=== PATIENT | female | born 1960 | race Caucasian/White ===

== ENCOUNTER 2016-07-16 09:43 | Emergency (ER) ==
[2016-07-16 09:54] VITALS: BP 124/85; TEMP 97.3; BMI 21.1
--- NOTE | 2016-07-16 14:01 | ED.PDOC ---
General ED Provider: Dr. VAHE HUDDLESTON JR Chief Complaint: Fall Stated Complaint: WAS AT WORK. TRIPPED OVER CURB STOP AND FELL ON CAR. LANDED ON RIGHT SIDE. PAIN RIGHT ARM , NECK AND ENTIRE SPINE.[End]2 days 97.3 81 18 95 % 124/85 5/10 injury occured on thursday while at work--states pain is not bad and is able to move all extremities--[ End ] Time Seen by Physician: 14:00 Mode of Arrival: Walk-In Information Source: Patient Exam Limitations: No limitations Nursing and Triage Documentation Reviewed and Agree: No Review of Systems - Review Of Systems Constitutional: Reports: No symptoms Eyes: Reports: No symptoms Ears, Nose, Mouth, Throat: Reports: No symptoms Respiratory: Reports: No symptoms Cardiac: Reports: No symptoms GI: Reports: No symptoms : Reports: No symptoms Musculoskeletal: Reports: Back pain (right), Joint pain (elbow), Muscle pain ( thigh), Neck pain Skin: Reports: No symptoms Neurological: Reports: No symptoms Endocrine: Reports: No symptoms Hematologic/Lymphatic: Reports: No symptoms All Other Systems: Other Past Medical History - Past Medical History Previously Healthy: Yes Endocrine: Reports: None Cardiovascular: Reports: None Respiratory: Reports: None Hematological: Reports: Anemia Gastrointestinal: Reports: None Genitourinary: Reports: None Neuro/Psych: Reports: None Musculoskeletal: Reports: None Cancer: Reports: None Last Menstrual Period: NA - Surgical History General Surgical History: Reports: Hysterectomy - Family History Family History: Reports: Unknown - Social History Smoking Status: Current every day smoker Hx Substance Use: No Alcohol Screening: None - Immunizations Tetanus Shot up to Date: No Physical Exam - Physical Exam Appearance: Ill-appearing Ill-appearing: Mild Pain Distress: Mild Eyes: GET, EOMI, Conjunctiva clear ENT: Ears normal, Nose normal, Oropharynx normal Neck: Supple Respiratory: Airway patent, Breath sounds clear, Breath sounds equal, Respirations nonlabored Cardiovascular: RRR, Pulses normal, No rub, No murmur GI/: Soft, Nontender, No masses, Bowel sounds normal, No Organomegaly Musculoskeletal: Normal strength, ROM intact, No edema, No calf tenderness ( tender Lspine and T spine nonfocal central) Skin: Warm, Dry, Normal color Neurological: Sensation intact, Motor intact, Reflexes intact, Cranial nerves intact, Alert, Oriented Psychiatric: Affect appropriate, Mood appropriate Critical Care Note - Critical Care Note Total Time (mins): 0 Course - Course Orders, Labs, Meds: Lab Review 07/16/16 10:00 Urine Opiates Screen Negative Ur Oxycodone Screen Negative Urine Methadone Screen Negative Ur Propoxyphene Screen Negative Ur Barbiturates Screen Negative U Tricyclic Antidepress Negative Ur Phencyclidine Scrn Negative Ur Amphetamine Screen Negative U Methamphetamines Scrn Negative U Benzodiazepines Scrn Negative Urine Cocaine Screen Negative U Cannabinoids Screen Negative Orders Category Date Time Status DRUG SCREEN, URINE, RAPID Stat LAB 07/16/16 10:00 Completed URINALYSIS C & S IF INDICATED Stat LAB 07/16/16 14:27 Ordered Cyclobenzaprine HCl [Flexeril] MEDS 07/16/16 14:18 Discontinued 10 mg PO ONCE STA LUMBAR SPINE, MIN 4 VIEWS Stat RADS 07/16/16 14:07 Completed THORACIC SPINE, 3 VIEWS Stat RADS 07/16/16 14:07 Completed Medications Discontinued Medications Generic Name Dose Route Start Last Admin Trade Name Freq PRN Reason Stop Dose Admin Cyclobenzaprine HCl 10 mg 07/16/16 14:18 07/16/16 14:55 Flexeril PO 07/16/16 14:19 10 mg ONCE STA Administration Vital Signs: Temp Pulse Resp BP Pulse Ox 07/16/16 09:48 97.3 F L 81 18 124/85 95 Departure - Departure Time of Disposition: 15:28 Disposition: HOME SELF-CARE Discharge Problem: Falls Instructions: Back Pain (ED), Acute Low Back Pain (ED) Condition: Good Pt referred to PMD for follow-up: Yes Additional Instructions: caution with lifting ice 20 minutes three times a day after three to four days may use heat or ice ibuprofen for pain Flexeril for spasms may return to work as soon as improving Allergies/Adverse Reactions: Allergies No Known Allergies Allergy (Unverified 07/16/16 09:47) Home Medications: Ambulatory Orders 1 [No Reported Medications] 07/16/16
[2016-07-16 14:22] LABS: COCAIN SCREEN,URINE NEGATIVE (NEGATIVE)
--- NOTE | 2016-07-16 14:40 | DI ---
EXAM: Thoracic spine three view HISTORY: Fall, back pain, tenderness COMPARISON: None FINDINGS: The vertebral bodies are normal in height. Alignment is normal. Mild chronic discogenic degenerative disease with mild multilevel intervertebral disc space narrowing. No fracture. IMPERSSION: 1. No fracture or subluxation. 2. Mild chronic discogenic degenerative disease.
--- NOTE | 2016-07-16 14:41 | DI ---
EXAM: Lumbar spine five view HISTORY: Fall, back pain COMPARISON: None TECHNIQUE: Five views lumbar spine were performed including oblique views FINDINGS: Sacroiliac joints intact. Sacral arcuate lines intact. Vertebral bodies normal in heigh t. No fracture. No subluxation. Small marginal osteophyte formation. Mild intervertebral disc sp mamie narrowing at L2-L3 and L3-L4. Facet joints grossly unremarkable. There are surgical clips in th e pelvis. IMPRESSION: 1. No fracture or subluxation. 2. Mild chronic discogenic degenerative disease.
[2016-07-16] MEDS: FLEXERIL PO STA (14:55)
[2016-07-16 15:20] LABS: BILIRUBIN,URINE Negative (NEGATIVE); KETONES,URINE Negative (NEGATIVE); LEUKOCYTE ESTERASE ,URINE Negative (NEGATIVE); NITRITE,URINE Negative (NEGATIVE); PH,URINE 6.5 (5-9); PROTEIN,URINE Negative (NEGATIVE); URINE, BLOOD Trace-lysed (NEGATIVE)
[2016-07-16 15:25] LABS: ADD URINE MICROSCOPIC YES
== END 2016-07-16 15:49 | disposition home or self-care (01) ==
LOC: ED 09:43
DX: M54.5 Low back pain (principal); M54.6 Pain in thoracic spine; M54.2 Cervicalgia; M79.601 Pain in right arm; W01.0XXA Fall on same level from slipping, tripping and stumbling without subsequent striking against object, initial encounter; Y99.0 Civilian activity done for income or pay; M51.36 Other intervertebral disc degeneration, lumbar region; M51.34 Other intervertebral disc degeneration, thoracic region; F17.210 Nicotine dependence, cigarettes, uncomplicated
CPT/HCPCS: 80306; 81001; 99283

== ENCOUNTER 2018-12-23 16:05 | Outpatient (CLI) | END 2018-12-23 16:06 | disposition home or self-care (01) | LOC: RHC-LAB 16:05 | PROVIDERS: ATTEND Nurse Practitioner Family | DX: R53.83 Other fatigue (principal); Z76.89 Persons encountering health services in other specified circumstances | CPT/HCPCS: 36415; 80053; 80061; 82607; 84443; 85025 ==

== ENCOUNTER 2022-09-22 17:19 | Observation (INO) ==
[2022-09-22 17:34] VITALS: BMI 22.1
--- NOTE | 2022-09-22 18:10 | ED.PDOC ---
General ED Provider: Dr. JAKE CANTU MD Chief Complaint: Respiratory Complaint Stated Complaint: shortness of breath Time Seen by Provider: 09/22/22 17:45 Information Source: Patient Nursing and Triage Documentation Reviewed and Agree: Yes Does patient meet sepsis criteria?: No System Inflammatory Response Syndrome: Not Applicable Sepsis Protocol: For patient's 13 years and over: Temp is 96.8 and below OR 101 and greater Pulse >90 BPM Resp >20/minute Acutely Altered Mental Status Are patient's symptoms suggestive of a new infection, such as: -Pneumonia -Skin, Soft Tissue -Endocarditis -UTI -Bone, Joint Infection -Implantable Device -Acute Abdominal Infection -Wound Infection -Meningitis -Blood Stream Catheter Infection -Unknown Respiratory Complaint Exam Shortness of Air Complaint/Exam Onset/Duration: ~4 days Symptoms Are: Still present Timing: Constant Initial Severity: Mild Current Severity: Moderate Character: Reports Dyspnea at rest Aggravating: Reports None Alleviating: Reports None Associated Signs and Symptoms: Reports Cough, Fever, Chills, Diaphoresis, Dizziness and Rapid breathing Related History: Denies Similar episode History of Healthcare-Acquired Pneumonia: No Pulmonary Embolism Risk Factors: Reports None Cardiac Risk Factors: Reports None Pseudomonas Risk Factors: Reports None Tuberculosis Risk Factors: Reports None Home Oxygen Use: No Stridor Present: No Tracheal Deviation: No Subcutaneous Emphysema: No Accessory Muscle Use: No Retractions: Not Present Diminished Breath Sounds: Yes Prolonged Expiratory Phase: Yes Unable to Speak Full Sentences: No Fatigue: No Differential Diagnoses: CHF, Pulmonary Edema, COPD Exacerbation, Pneumonia, Pneumothorax, SARS, Bronchitis, Bronchiolitis, Bronchospasm, Mycoplasma and URI Review of Systems Review Of Systems Constitutional: Reports Chills, Fever, Malaise, Weakness and Sweats Respiratory: Reports Cough, Short of air and Wheezing All Other Systems: Reviewed and Negative [facility] Medical History (Updated 09/22/22 @ 22:01 by RAYMOND MELO RN) Allergies T78.40XA - Allergy, unspecified, initial encounter (ICD-10) Arthritis M19.90 - Unspecified osteoarthritis, unspecified site (ICD-10) COPD (chronic obstructive pulmonary disease) J44.9 - Chronic obstructive pulmonary disease, unspecified (ICD-10) Gastroesophageal reflux disease K21.9 - Gastro-esophageal reflux disease without esophagitis (ICD-10) Family History Mother Schizophrenic disorder Brain tumor FATHER Alcoholic Social History (Updated 09/22/22 @ 22:01 by RAYMOND MELO RN) Smoking and tobacco status: Current every day smoker Tobacco type: cigarettes Smoking packs per day: 1.5 Tobacco: How many years used: 12 Quit status: has quit before Alcohol intake: former Substance use type: does not use Brooke/congregation: [employer] Special brooke needs: No Agree to transfusion: Yes Adopted: No Caregiver/support person: No Household members: none Housing: other Marital status: S SINGLE Lives independently: Yes Number of children: 1 Number of grandchildren: 2 Highest education level completed: high school graduate Financial difficulty paying for basics: not very hard service: No Current occupational status: employed 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) Pets and animals: Yes (3 cats) Leisure activites: reading and other History of recent travel: No Sexually active: No Do you think of yourself as: straight/heterosexual Current gender identity: female Seatbelt use: always Drives intoxicated or rides with intoxicated class a regional drivers: No Water heater temperature set < 120 degrees: Yes Working smoke detector in home: Yes Fire extinguisher in home: No Carbon monoxide detector in home: No Firearms in home: No Surgical History Status post hysterectomy Z90.710 - Acquired absence of both cervix and uterus (ICD-10) Female Reproductive History Menstrual Hx Hysterectomy: Yes Hx Tubal Ligation: No Physical Exam Physical Exam Appearance: Reports Ill-appearing and Well-nourished Ill-appearing: Moderate Pain Distress: None Eyes: Reports GET, EOMI and Conjunctiva clear ENT: Reports Ears normal and Nose normal Neck: Nonsupple (normal age-appropriate external appearance) Respiratory: Reports Airway patent, Breath sounds equal, Breath sounds diminished and Rhonchi Cardiovascular: Reports RRR GI/: Reports Soft and Nontender Musculoskeletal: Reports Normal strength and ROM intact Skin: Reports Warm and Dry Neurological: Reports Sensation intact, Motor intact, Cranial nerves intact, Alert and Oriented Psychiatric: Reports Affect appropriate and Mood appropriate Interpretation EKG Interpretation Time of EKG #1: 18:43 Rate: Normal (100) Rhythm: Sinus Ectopy: None Barclay: NL ST Segment: Normal Interpretation: normal ECG EKG Interpretation By: ED Physician Critical Care Note Critical Care Note Total Critical Care Time (mins): 0 Course Course 09/23/22 04:37 09/23/22 04:37 Orders, Labs, Meds: Lab Review 09/22/22 09/22/22 17:52 18:24 WBC 24.03 H RBC 4.62 Hgb 13.7 Hct 40.2 MCV 87.0 MCH 29.7 MCHC 34.1 RDW Coeff of Xavier 13.6 Plt Count 337 Immature Gran % (Auto) 1.0 Neut % (Auto) 80.1 H Lymph % (Auto) 11.4 [place] % (Auto) 6.9 Eos % (Auto) 0.3 Baso % (Auto) 0.3 Neut # (Auto) 19.2 H Lymph # (Auto) 2.8 [place] # (Auto) 1.7 Eos # (Auto) 0.1 Baso # (Auto) 0.1 Immature Gran # (Auto) 0.2 Sodium 134.1 L Potassium 3.51 Chloride 98.2 Carbon Dioxide 31.1 H Anion Gap 8.31 BUN 8.6 Creatinine 0.56 L Estimated GFR (MDRD) 110.00 BUN/Creatinine Ratio 15.35 Glucose 128.4 H Calcium 8.94 Magnesium 2.18 Total Bilirubin 0.30 AST 27.6 ALT 19.9 Alkaline Phosphatase 116.4 Troponin I < 0.012 NT-Pro-B Natriuret Pep 81 Total Protein 7.53 Albumin 3.91 Globulin 3.62 Albumin/Globulin Ratio 1.08 Influ A Molecular Assay Negative by naat Influ B Molecular Assay Negative by naat SARS CoV-2 RNA Rapid WARNER Negative Orders Category Date Time Status ADMIT OBSERVATION [PLACE PATIENT OBSERVATION] .TO ADMISSION 09/22/22 20:53 Active MEDSURG (MONITORED BED) EKG-(ED ONLY) Stat CARDIO 09/22/22 18:10 Completed NEBULIZER TREATMENT Routine CARDIO 09/22/22 20:49 Active OXYGEN Routine CARDIO 09/22/22 20:44 Active REMINDER:Notify Provider Pulse<60 or>130 PRN CARE 09/22/22 20:44 Active REMINDER:Notify if BP<90/60 or >170/110 PRN CARE 09/22/22 20:44 Active TELEMETRY MONITORING TELE CARE 09/22/22 20:53 Active VITAL SIGNS Q8HR CARE 09/22/22 20:44 Completed REGULAR DIET DIETARY 09/23/22 Breakfast Ordered BLOOD CULTURE Stat LAB 09/22/22 21:25 Received CBC W/ AUTO DIFF DAILY@0600 LAB 09/23/22 04:37 Completed CBC W/ AUTO DIFF Stat LAB 09/22/22 18:24 Completed CMP [COMPREHENSIVE METABOLIC PANEL] Stat LAB 09/22/22 18:24 Completed COMPREHENSIVE METABOLIC PANEL DAILY@0600 LAB 09/23/22 04:37 Completed COVID [SARS COV-2 RNA RAPID WARNER] Stat LAB 09/22/22 17:52 Completed FLU A & B MOLECULAR [FLU A/B MOLECULAR] Stat LAB 09/22/22 17:52 Completed MAGNESIUM DAILY@0600 LAB 09/23/22 04:37 Completed MAGNESIUM Stat LAB 09/22/22 18:24 Completed NT-PROBNP(ED) Stat LAB 09/22/22 18:24 Completed RAPID STREP SCREEN [MOLECULAR GROUP A STREP] Stat LAB 09/22/22 17:52 Completed SPUTUM CULTURE Routine LAB 09/22/22 21:00 Uncollected TROPONIN I Stat LAB 09/22/22 18:24 Completed Acetaminophen [Tylenol] Meds 09/22/22 20:50 Active 650 mg PO Q4-6H PRN Albuterol Sulfate 0.083% Neb [Albuterol 0.083% Neb] Meds 09/22/22 20:44 Discontinued 2.5 mg NEB RTQ6H PRN Ipratropium/Albuterol Neb [Duoneb] Meds 09/22/22 18:31 Discontinued 3 ml NEB ONCE ONE Levofloxacin/D5w [Levaquin 750 mg/150 ml D5w] Meds 09/23/22 21:00 Active 750 mg in 150 ml IV DAILY Levofloxacin/D5w [Levaquin 750 mg/150 ml D5w] Meds 09/22/22 20:48 Discontinued 750 mg in 150 ml IV ONCE Mag Hydrox/Al Hydrox/Simeth [Mylanta Susp] Meds 09/22/22 20:54 Active 30 ml PO BID PRN Methylprednisolone Sod Succ/Pf [Solu-Medrol 40 mg] Meds 09/22/22 21:00 Active 40 mg IVP Q8H Ondansetron HCl/Pf [Zofran 4 mg/2 ml] Meds 09/22/22 20:54 Active 4 mg IVP Q8H PRN Sodium Chloride 0.9% [Sodium Chloride] 500 ml Meds 09/22/22 20:58 Discontinued IV 125 mls/hr CHEST, 2 VIEWS PA & LAT Stat RADS 09/22/22 18:10 Completed Medications Generic Name Dose Route Start Last Admin Trade Name Alva PRN Reason Stop Dose Admin Acetaminophen 650 mg 09/22/22 20:50 09/22/22 22:24 Acetaminophen 325 Mg Tablet PO 650 mg Q4-6H PRN Administration Mild/Moderate Pain Al Hydroxide/Mg Hydroxide 30 ml 09/22/22 20:54 Mag Hydrox/Al Hydrox/Simeth 30 Ml Cup PO BID PRN Heartburn Albuterol/Ipratropium 3 ml 09/23/22 00:00 09/23/22 04:55 Ipratropium/Albuterol Vial.Neb NEB 3 ml RTQ6H GRACIELA Administration Levofloxacin/Dextrose 750 mg in 150 mls @ 100 mls/hr 09/23/22 21:00 Levaquin 750 Mg/150 Ml D5w IV 09/26/22 20:59 DAILY GRACIELA Methylprednisolone Sodium Succinate 40 mg 09/22/22 21:00 09/23/22 05:42 Methylprednisolone Sod Succ/Pf 40 Mg/Ml Vial IVP 40 mg Q8H GRACIELA Administration Ondansetron HCl 4 mg 09/22/22 20:54 Ondansetron Hcl/Pf 4 Mg/2 Ml Sdv IVP Q8H PRN Nausea / Vomiting Sodium Chloride 1 syr 09/23/22 13:00 0.9% Sodium Chloride 10 Ml Disp.Syrin IVF Q8HR GRACIELA Discontinued Medications Generic Name Dose Route Start Last Admin Trade Name Alva PRN Reason Stop Dose Admin Albuterol Sulfate 2.5 mg 09/22/22 20:44 Albuterol Sulfate 0.083% Vial.Neb NEB RTQ6H PRN Shortness of Breath Albuterol/Ipratropium 3 ml 09/22/22 18:31 09/22/22 18:38 Ipratropium/Albuterol Vial.Neb NEB 09/22/22 18:32 3 ml ONCE ONE Administration Levofloxacin/Dextrose 750 mg in 150 mls @ 100 mls/hr 09/22/22 20:48 09/22/22 20:57 Levaquin 750 Mg/150 Ml D5w IV 09/22/22 22:17 100 mls/hr ONCE ONE Administration Sodium Chloride 500 mls @ 125 mls/hr 09/22/22 20:58 09/22/22 22:43 Sodium Chloride IV 09/23/22 00:57 125 mls/hr .Q4H STA Administration Vital Signs: Temp Pulse Resp BP Pulse Ox 09/22/22 17:28 97.8 F 113 H 20 99/66 87 L Patient presents with shortness of breath and low Oxygen saturation. She was swabbed on arrival, when posted all (Strep/Flu/CoVid) were negative. She was given a DuoNeb which improved her clinical condition. ECG on arrival, non- acute. Labs posted, clinically significant only for severe leukocytosis (24.03) with a left shift (Segs 80.1%, absolute 19.2). CXR reported Right upper lobe pneumonia. Bilateral apical scarring or pleural thickening. Otherwise normal chest radiographs. She was given IV antibiotics and admitted. She was in stable condition when transported from the ED to the medical floor. I spoke with Jose, the Hospitalist HISTORY TUTOR, who accepted the patient. Discharge Plan Discharge Patient Disposition: ADMITTED INPATIENT Discharge Problem: Pneumonia Qualifiers: Pneumonia type: due to unspecified organism Laterality: right Lung location: upper lobe of lung Qualified Code(s): J18.9 - Pneumonia, unspecified organism Did you review [place] for ALL controlled substances?: Not Applicable ED Provider: JAKE CANTU Condition: Stable Physician Progress Note: []
[2022-09-22 18:20] LABS: MOLECULAR FLU A NEGATIVE BY NAAT (NEGATIVE); MOLECULAR FLU B NEGATIVE BY NAAT (NEGATIVE)
[2022-09-22] MEDS ORDERED: DUONEB NEB ONE (18:31)
[2022-09-22 18:33] LABS: BASOPHILS # (AUTO) 0.1 K/uL (0-0.2); BASOPHILS % (AUTO) 0.3 % (0.0-3.0); EOSINOPHILS # (AUTO) 0.1 K/ul (0.0-0.7); EOSINOPHILS % (AUTO) 0.3 % (0.0-7.0); HEMATOCRIT 40.2 % (37.0-47.0); HEMOGLOBIN 13.7 g/dl (12.0-16.0); IMMATURE GRANULOCYTE # (AUTO) 0.2 (0.0-1.0); LYMPHOCYTES # (AUTO) 2.8 K/uL (0.60-3.4); LYMPHOCYTES % (AUTO) 11.4 (10.0-50.0); MEAN CORPUSCULAR HEMOGLOBIN 29.7 pg (27.0-31.0); MEAN CORPUSCULAR HGB CONC 34.1 (31.8-35.4); MONOCYTES # (AUTO) 1.7 K/uL (0.4-2.0); MONOCYTES % (AUTO) 6.9 (0-10); NEUTROPHILS # (AUTO) 19.2 K/ul (2.0-6.9); NEUTROPHILS % (AUTO) 80.1 % (42.2-75.2); PLATELET COUNT 337 10^3/uL (140-440); RDW COEFFICIENT OF VARIATION 13.6 % (11.6-14.8); RED BLOOD COUNT 4.62 10^6/ul (4.20-5.40)
[2022-09-22 18:34] LABS: WHITE BLOOD COUNT 24.03 K/ul (4.6-10.2)
--- NOTE | 2022-09-22 18:36 | DI ---
EXAM: CHEST RADIOGRAPH TECHNIQUE: Two views. Frontal and lateral. HISTORY: Cough. Shortness of breath. COMPARISON: None. FINDINGS: Consolidation in the right upper lobe inferiorly consistent with pneumonia. Bilateral apical scarrin g or pleural thickening. Otherwise clear lungs. The heart size is normal. There is no pleural effusion. There is no pneumothorax. IMPRESSION: 1. Right upper lobe pneumonia. 2. Bilateral apical scarring or pleural thickening. 3. Otherwise normal chest radiographs.
[2022-09-22 18:41] LABS: ALANINE AMINOTRANSFERASE 19.9 U/L (0-35); ALBUMIN 3.91 g/dL (3.5-5.0); ALKALINE PHOSPHATASE 116.4 U/L (53-141); ASPARTATE AMINO TRANSFERASE 27.6 U/L (14-36); BLOOD UREA NITROGEN 8.6 mg/dL (7-17); CALCIUM 8.94 mg/dL (8.4-10.2); CARBON DIOXIDE 31.1 mmol/L (22-30.0); CHLORIDE 98.2 mmol/L (98-107); CREATININE 0.56 mg/dL (0.60-1.30); GLUCOSE 128.4 mg/dL (74-106); MAGNESIUM 2.18 mg/dL (1.6-2.3); POTASSIUM 3.51 mmol/L (3.5-5.1); SODIUM 134.1 mmol/L (134.5-145); TOTAL PROTEIN 7.53 g/dL (6.3-8.2)
[2022-09-22 18:52] LABS: TROPONIN I < 0.012 ng/ml (0.0000-0.120)
[2022-09-22 18:54] LABS: SARS COV-2 RNA RAPID NAAT NEGATIVE (NEGATIVE)
[2022-09-22] MEDS ORDERED: ALBUTEROL 0.083% NEB NEB PRN (20:44)
[2022-09-22] MEDS ORDERED: LEVAQUIN 750 MG/150 ML D5W 750 MG/150 ML BAG IV ONE (20:48)
[2022-09-22] MEDS ORDERED: TYLENOL PO PRN (20:50)
[2022-09-22] MEDS ORDERED: ZOFRAN 4 MG/2 ML IVP PRN (20:54)
[2022-09-22] MEDS ORDERED: MYLANTA SUSP PO PRN (20:54)
[2022-09-22] MEDS ORDERED: SODIUM CHLORIDE 500 ML IV STA (20:58)
[2022-09-22] MEDS: SOLU-MEDROL 40 MG IVP SCH (22:44)
[2022-09-22] MEDS: DUONEB NEB SCH (23:40)
[2022-09-23] MEDS ORDERED: ATROVENT 0.02% NEB NEB SCH
[2022-09-23 04:41] LABS: BASOPHILS % (AUTO) 0.2 % (0.0-3.0); EOSINOPHILS % (AUTO) 0.2 % (0.0-7.0); HEMATOCRIT 37.6 % (37.0-47.0); HEMOGLOBIN 12.8 g/dl (12.0-16.0); IMMATURE GRANULOCYTE # (AUTO) 0.2 (0.0-1.0); LYMPHOCYTES # (AUTO) 1.1 K/uL (0.60-3.4); MEAN CORPUSCULAR HEMOGLOBIN 29.8 pg (27.0-31.0); MEAN CORPUSCULAR VOLUME 87.4 fl (81.0-99.0); MONOCYTES # (AUTO) 0.4 K/uL (0.4-2.0); MONOCYTES % (AUTO) 1.8 (0-10); NEUTROPHILS # (AUTO) 19.2 K/ul (2.0-6.9); NEUTROPHILS % (AUTO) 91.8 % (42.2-75.2); PLATELET COUNT 318 10^3/uL (140-440); RDW COEFFICIENT OF VARIATION 13.9 % (11.6-14.8); WHITE BLOOD COUNT 20.93 K/ul (4.6-10.2)
[2022-09-23] MEDS: DUONEB NEB SCH ×4 (04:55→23:13)
[2022-09-23 05:05] LABS: ALANINE AMINOTRANSFERASE 20.2 U/L (0-35); ALBUMIN 3.46 g/dL (3.5-5.0); ALKALINE PHOSPHATASE 100.3 U/L (53-141); ASPARTATE AMINO TRANSFERASE 28.8 U/L (14-36); BILIRUBIN,TOTAL 0.28 mg/dL (0.2-1.3); BLOOD UREA NITROGEN 8.6 mg/dL (7-17); CALCIUM 8.55 mg/dL (8.4-10.2); CARBON DIOXIDE 28.7 mmol/L (22-30.0); CHLORIDE 103.3 mmol/L (98-107); CREATININE 0.47 mg/dL (0.60-1.30); MAGNESIUM 2.26 mg/dL (1.6-2.3); POTASSIUM 3.87 mmol/L (3.5-5.1); SODIUM 135.1 mmol/L (134.5-145); TOTAL PROTEIN 6.79 g/dL (6.3-8.2)
[2022-09-23] MEDS: SOLU-MEDROL 40 MG IVP SCH ×3 (05:42→21:37)
--- NOTE | 2022-09-23 08:55 | PCM ---
Date of Service Date Seen by Provider: 09/23/22 Time Seen by Provider: 08:20 Admit Day/Time Admission Date: 09/22/22 Admission Time: 21:00 Reason for Admission Chief Complaint: RUL PNA Hospital Provider Hospital Provider[facility] SILVESTRE DOZ[facility] History of Present Illness History of Present Illness: 62 yo female presented to the ER last night for complaints of shortness of breath and fatigue. Patient states that she has not been feeling well for at least a week with symptoms of fatigue, cough, chills, congestion, and shortness of breath. The shortness of breath started over the last 2 days. Also reported an episode of diarrhea. Denies any fever, chest or back pain, N/V. She is a heavy smoker of 2 ppd. Case Discussed With Case Discussed With: Patient's case was discussed with the ER Physicians, Dr. Zaman. [facility] Medical History (Updated 09/23/22 @ 08:55 by SILVESTRE DOZIER) Allergies T78.40XA - Allergy, unspecified, initial encounter (ICD-10) Arthritis M19.90 - Unspecified osteoarthritis, unspecified site (ICD-10) COPD (chronic obstructive pulmonary disease) J44.9 - Chronic obstructive pulmonary disease, unspecified (ICD-10) Gastroesophageal reflux disease K21.9 - Gastro-esophageal reflux disease without esophagitis (ICD-10) Generalized anxiety disorder F41.1 - Generalized anxiety disorder (ICD-10) Major depressive disorder, single episode, mild F32.0 - Major depressive disorder, single episode, mild (ICD-10) Surgical History Status post hysterectomy Z90.710 - Acquired absence of both cervix and uterus (ICD-10) Family History Mother Schizophrenic disorder Brain tumor FATHER Alcoholic Social History Smoking and tobacco status: Current every day smoker Tobacco type: cigarettes Smoking packs per day: 1.5 Tobacco: How many years used: 12 Quit status: has quit before Alcohol intake: former Substance use type: does not use Brooke/yarsani: ISLAM Special brooke needs: No Agree to transfusion: Yes Adopted: No Caregiver/support person: No Household members: none Housing: other Marital status: S SINGLE Lives independently: Yes Number of children: 1 Number of grandchildren: 2 Highest education level completed: high school graduate Financial difficulty paying for basics: not very hard service: No Current occupational status: employed 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) Pets and animals: Yes (3 cats) Leisure activites: reading and other History of recent travel: No Sexually active: No Do you think of yourself as: straight/heterosexual Current gender identity: female Seatbelt use: always Drives intoxicated or rides with intoxicated flag car driver: No Water heater temperature set < 120 degrees: Yes Working smoke detector in home: Yes Fire extinguisher in home: No Carbon monoxide detector in home: No Firearms in home: No Allergies Allergies Allergy/AdvReac Type Severity Reaction Status Date / Time No Known Allergies Allergy Verified 03/12/21 14:17 Current Medications Home Medications aspirin 81 mg chewable tablet (Aspirin Childrens) 81 mg PO DAILY 09/22/22 [History Confirmed 09/22/22 Last Taken Unknown] fluticasone propionate 50 mcg/actuation nasal spray,suspension (24 Hour Allergy Relief) 2 spray intranasal DAILY PRN allergy symptoms 09/22/22 [History Confirmed 09/22/22 Last Taken 09/22/22] Home Acetaminophen (Acetaminophen 325 Mg Tablet) 650 mg PO Q4-6H PRN PRN Reason: Mild/Moderate Pain Last Admin: 09/22/22 22:24 Dose: 650 mg Al Hydroxide/Mg Hydroxide (Mag Hydrox/Al Hydrox/Simeth 30 Ml Cup) 30 ml PO BID PRN PRN Reason: Heartburn Albuterol/Ipratropium (Ipratropium/Albuterol Vial.Neb) 3 ml NEB RTQ6H GRACIELA Last Admin: 09/23/22 04:55 Dose: 3 ml Levofloxacin/Dextrose (Levaquin 750 Mg/150 Ml D5w) 750 mg in 150 mls @ 100 mls/hr IV BEDTIME GRACIELA Stop: 09/26/22 20:59 Methylprednisolone Sodium Succinate (Methylprednisolone Sod Succ/Pf 40 Mg/Ml Vial) 40 mg IVP Q8H GRACIELA Last Admin: 09/23/22 05:42 Dose: 40 mg Ondansetron HCl (Ondansetron Hcl/Pf 4 Mg/2 Ml Sdv) 4 mg IVP Q8H PRN PRN Reason: Nausea / Vomiting Sodium Chloride (0.9% Sodium Chloride 10 Ml Disp.Syrin) 1 syr IVF Q8HR GRACIELA Valacyclovir HCl (Valacyclovir Hcl 500 Mg Tablet) 1,000 mg PO BID GRACIEAL Stop: 09/29/22 23:59 Last Admin: 09/23/22 09:41 Dose: 1,000 mg Discontinued Medications Albuterol Sulfate (Albuterol Sulfate 0.083% Vial.Neb) 2.5 mg NEB RTQ6H PRN PRN Reason: Shortness of Breath Albuterol/Ipratropium (Ipratropium/Albuterol Vial.Neb) 3 ml NEB ONCE ONE Stop: 09/22/22 18:32 Last Admin: 09/22/22 18:38 Dose: 3 ml Levofloxacin/Dextrose (Levaquin 750 Mg/150 Ml D5w) 750 mg in 150 mls @ 100 mls/hr IV ONCE ONE Stop: 09/22/22 22:17 Last Admin: 09/22/22 20:57 Dose: 100 mls/hr Sodium Chloride (Sodium Chloride) 500 mls @ 125 mls/hr IV .Q4H STA Stop: 09/23/22 00:57 Last Admin: 09/22/22 22:43 Dose: 125 mls/hr Review of Systems Constitutional: Reports Fatigue and Chills Head: Reports Normocephalic and Atraumatic Eyes: Reports No symptoms Ears: Reports No symptoms Nose: Reports Congestion Mouth: Reports Sores (fever blisters 2-3 days) Throat: Reports No symptoms Cardiovascular: Reports No symptoms Respiratory: Reports Cough and Shortness of air Gastrointestinal: Reports Diarrhea Genitourinary: Reports No Symptoms Musculoskeletal: Reports No symptoms Hematology: Reports No symptoms Immunology: Reports No symptoms Neurological: Reports No symptoms Psychiatric: Reports No symptoms Physical examination Most Recent Vital Signs: Most Recent Vital Signs Temperature 97.4 F L 09/23/22 05:47 Temperature Source Oral 09/23/22 05:47 Temperature Source Infrared 09/22/22 17:28 Pulse Rate 72 09/23/22 05:47 Respiratory Rate 18 09/23/22 05:47 Blood Pressure 112/76 09/23/22 05:47 Blood Pressure Mean 88 09/23/22 05:47 Blood Pressure Right Arm 111/77 09/22/22 21:37 Blood Pressure Location Right Arm 09/23/22 05:47 Blood Pressure Position Supine 09/23/22 05:47 O2 Sat by Pulse Oximetry 94 L 09/23/22 05:47 Oxygen Delivery Method Nasal Cannula 09/23/22 05:47 Oxygen Flow Rate 2 09/23/22 05:47 Height 5 ft 2 in 09/22/22 21:37 Weight 121 lb 09/22/22 21:37 Telemetry Type Remote Telemetry 09/23/22 01:00 Telemetry Monitoring Continues 09/23/22 01:00 Telemetry Heart Rate 81 09/23/22 01:00 Telemetry SPO2 97 09/23/22 01:00 EKG MS Interval 0.17 09/23/22 01:00 EKG QRS Interval 0.05 L 09/23/22 01:00 Telemetry Strip Reading SR 09/23/22 01:00 Appearance: Positive No Apparent Distress, Alert and Oriented x3, Ill-Appearing and Thin Skin: Positive [place], Warm, Good Turgor, Good Color and Other (Herpes simplex noted to R upper and lower lips) HEENT: Positive Normocephalic and Atraumatic Neck: Positive Supple and Midline Trachea Chest/Lungs: Positive Symmetrical With Equal Breath Sounds, Clear to Auscultation Bilaterally, Good Air Movement all 4 Lung Hernandez and Other (Diminished breath sounds to R upper lobe) Heart: Positive RRR, Pulses Normal, No S3 Auscultated and No S4 Auscultated GI/: Positive Soft, Nontender, Bowel Sounds Normal, No Distention and No Organomegaly Musculoskeletal: Positive Not Examined Extremities: Positive Intact Peripheral Pulses, Stable Joints Without Laxity and Good ROM in All Joints Neurological: Positive Sensation Intact, Motor intact, Reflexes Intact, Cranial Nerves Intact, Alert, Oriented and Muscle Strength 5/5 in Upper and Lower Extremities Bilaterally Psychiatric: Positive Oriented x4, Appropriate Mood, Appropriate Affect, Intact Memory, Good Short-Term Recall, Good Long-Term Recall, Normal Judgement and Normal Insight Labs This Visit Labs This Visit: Labs This Visit 09/22/22 09/22/22 09/23/22 17:52 18:24 04:37 WBC 24.03 H 20.93 H RBC 4.62 4.30 Hgb 13.7 12.8 Hct 40.2 37.6 MCV 87.0 87.4 MCH 29.7 29.8 MCHC 34.1 34.0 RDW Coeff of Xavier 13.6 13.9 Plt Count 337 318 Immature Gran % (Auto) 1.0 1.0 Neut % (Auto) 80.1 H 91.8 H Lymph % (Auto) 11.4 5.0 L [place] % (Auto) 6.9 1.8 Eos % (Auto) 0.3 0.2 Baso % (Auto) 0.3 0.2 Neut # (Auto) 19.2 H 19.2 H Lymph # (Auto) 2.8 1.1 [place] # (Auto) 1.7 0.4 Eos # (Auto) 0.1 0.0 Baso # (Auto) 0.1 0.0 Immature Gran # (Auto) 0.2 0.2 Sodium 134.1 L 135.1 Potassium 3.51 3.87 Chloride 98.2 103.3 Carbon Dioxide 31.1 H 28.7 Anion Gap 8.31 6.97 BUN 8.6 8.6 Creatinine 0.56 L 0.47 L Estimated GFR (MDRD) 110.00 135.00 BUN/Creatinine Ratio 15.35 18.29 Glucose 128.4 H 148.0 H Calcium 8.94 8.55 Magnesium 2.18 2.26 Total Bilirubin 0.30 0.28 AST 27.6 28.8 ALT 19.9 20.2 Alkaline Phosphatase 116.4 100.3 Troponin I < 0.012 NT-Pro-B Natriuret Pep 81 Total Protein 7.53 6.79 Albumin 3.91 3.46 L Globulin 3.62 3.33 Albumin/Globulin Ratio 1.08 1.03 Influ A Molecular Assay Negative by naat Influ B Molecular Assay Negative by naat SARS CoV-2 RNA Rapid WARNER Negative Microbiology This Visit 09/22/22 17:52 Throat Group A Strep Molecular Assay - Final Imaging Imagining: CHEST, 2 VIEWS PA & LAT IMPRESSION: 1. Right upper lobe pneumonia. 2. Bilateral apical scarring or pleural thickening. 3. Otherwise normal chest radiographs. Review Statement Review Statement: I have independently reviewed and interpreted the labs/EKGs/imaging that were ordered by the ER provider. I have reviewed all outside records that are available currently in our EMR including imaging/notes/labs from previous visits. Plan Plan: 1. Sepsis in the setting of community acquired pneumonia - blood cultures pending, sputum culture pending, started on levaquin in ER - continue Q24H, NS@125mL/hr, solumedrol 40 mg Q8H, nebs, telemetry 2. Acute Hypoxic Respiratory Failure in setting of CAP and COPD - RT following, wean off O2 as tolerated, nebs, solumedrol 40 mg Q8H 3. Community Acquired Pneumonia - R upper lobe, no s/sx of aspiration noted from patient, treating with levaquin 4. COPD - see above plan 5. Herpes simplex, oral - treating with course of valtrex 1G BID x 7 days 6. Tobacco use - nicotine patch if patient desires, discussed smoking cessation 7. Anxiety/Depression - no longer taking medications, no SI/HI or current issues DVT Prophylaxis: Early ambulation for VTE prevention Time Spent: Greater than 80 minutes spent with patient, 50% of the time spent with this patient was devoted to counseling and coordination of care. [facility] minutes spent discussing advance care planning. Smoking Cessation: 8 minutes spent discussing smoking cessation. Disposition: Admit to Med/surg observation Discussed Plan of Care with Dr. Loredo. Medications Medication Orders: Medications Ordered Category Date Time Status 0.9 % Sodium Chloride [Saline Flush] Meds 09/23/22 13:00 Active 1 syr IVF Q8HR Acetaminophen [Tylenol] Meds 09/22/22 20:50 Active 650 mg PO Q4-6H PRN Ipratropium/Albuterol Neb [Duoneb] Meds 09/23/22 00:00 Active 3 ml NEB RTQ6H Levofloxacin/D5w [Levaquin 750 mg/150 ml D5w] Meds 09/23/22 21:00 Active 750 mg in 150 ml IV BEDTIME Mag Hydrox/Al Hydrox/Simeth [Mylanta Susp] Meds 09/22/22 20:54 Active 30 ml PO BID PRN Methylprednisolone Sod Succ/Pf [Solu-Medrol 40 mg] Meds 09/22/22 21:00 Active 40 mg IVP Q8H Ondansetron HCl/Pf [Zofran 4 mg/2 ml] Meds 09/22/22 20:54 Active 4 mg IVP Q8H PRN
[2022-09-23] MEDS ORDERED: VALTREX PO SCH (09:30)
[2022-09-23] MEDS: VALTREX PO SCH ×2 (09:41→20:01)
[2022-09-23] MEDS ORDERED: LEVAQUIN 750 MG/150 ML D5W 750 MG/150 ML BAG IV SCH (21:00)
[2022-09-24] MEDS: DUONEB NEB SCH ×2 (05:10→11:00)
[2022-09-24] MEDS: SOLU-MEDROL 40 MG IVP SCH ×2 (05:54→12:53)
[2022-09-24] MEDS: VALTREX PO SCH (08:43)
[2022-09-24 08:50] LABS: BASOPHILS # (AUTO) 0.1 K/uL (0-0.2); BASOPHILS % (AUTO) 0.2 % (0.0-3.0); HEMATOCRIT 39.3 % (37.0-47.0); HEMOGLOBIN 13.1 g/dl (12.0-16.0); IMMATURE GRANULOCYTE # (AUTO) 1.1 (0.0-1.0); IMMATURE GRANULOCYTE % (AUTO) 3.3 % (0.0-5.0); LYMPHOCYTES # (AUTO) 2.7 K/uL (0.60-3.4); LYMPHOCYTES % (AUTO) 7.8 (10.0-50.0); MEAN CORPUSCULAR HEMOGLOBIN 29.5 pg (27.0-31.0); MEAN CORPUSCULAR HGB CONC 33.3 (31.8-35.4); MEAN CORPUSCULAR VOLUME 88.5 fl (81.0-99.0); MONOCYTES # (AUTO) 1.2 K/uL (0.4-2.0); MONOCYTES % (AUTO) 3.5 (0-10); NEUTROPHILS # (AUTO) 29.6 K/ul (2.0-6.9); NEUTROPHILS % (AUTO) 85.2 % (42.2-75.2); PLATELET COUNT 417 10^3/uL (140-440); RED BLOOD COUNT 4.44 10^6/ul (4.20-5.40)
[2022-09-24 09:03] LABS: ALBUMIN 3.48 g/dL (3.5-5.0); ALKALINE PHOSPHATASE 94.6 U/L (53-141); ASPARTATE AMINO TRANSFERASE 29.3 U/L (14-36); BILIRUBIN,TOTAL 0.18 mg/dL (0.2-1.3); BLOOD UREA NITROGEN 12.5 mg/dL (7-17); CALCIUM 8.98 mg/dL (8.4-10.2); CARBON DIOXIDE 26.7 mmol/L (22-30.0); CREATININE 0.5 mg/dL (0.60-1.30); GLUCOSE 143.3 mg/dL (74-106); POTASSIUM 3.98 mmol/L (3.5-5.1); SODIUM 138.4 mmol/L (134.5-145); TOTAL PROTEIN 6.89 g/dL (6.3-8.2)
[2022-09-24 10:01] VITALS: BP 103/61; RESP 16; TEMP 96.6
--- NOTE | 2022-09-24 11:15 | PCM.PROG ---
Date/Time Seen Date Seen by Provider: 09/24/22 Time Seen by Provider: 08:45 Provider Provider: SILVESTRE DOZIER, [facility] Chief Complaint Chief Complaint: RUL PNA Subjective Subjective: No fever or events overnight. Feeling better today. Still requiring oxygen. Objective Appearance: Positive No Apparent Distress, Alert and Oriented x3 and Thin Chest/Lungs: Positive Symmetrical With Equal Breath Sounds, Clear to Auscultation Bilaterally and Good Air Movement all 4 Lung Hernandez Heart: Positive RRR and Pulses Normal GI/: Positive Soft, Nontender, Bowel Sounds Normal, No Distention and No Organomegaly Musculoskeletal: Positive Not Examined Neurological: Positive Sensation Intact, Motor intact, Reflexes Intact, Alert, Oriented and Muscle Strength 5/5 in Upper and Lower Extremities Bilaterally Vital Signs Vital Signs: Vital Signs: Last 24 Hours 09/23/22 13:00 09/23/22 14:00 09/23/22 14:00 Temperature 96.5 F L Temperature Source Temporal Artery Scan Pulse Rate 79 Respiratory Rate 20 Blood Pressure 111/69 Blood Pressure Mean 83 Blood Pressure Location Right Arm Blood Pressure Position O2 Sat by Pulse Oximetry 88 L Oxygen Delivery Method Nasal Cannula Nasal Cannula Oxygen Flow Rate 2 2 Telemetry Type Remote Telemetry Telemetry Monitoring Continues Telemetry Heart Rate 87 Telemetry SPO2 93 EKG FL Interval 0.13 EKG QRS Interval 0.05 L Telemetry Strip Reading SR 09/23/22 18:00 09/24/22 02:00 09/23/22 19:00 Temperature 96.7 F L 97 F L Temperature Source Temporal Artery Scan Temporal Artery Scan Pulse Rate 86 82 Respiratory Rate 16 18 Blood Pressure 107/74 104/72 Blood Pressure Mean 85 82 Blood Pressure Location Right Arm Right Arm Blood Pressure Position Sitting Supine O2 Sat by Pulse Oximetry 94 L 93 L Oxygen Delivery Method Nasal Cannula Nasal Cannula Oxygen Flow Rate 2 2 Telemetry Type Remote Telemetry Telemetry Monitoring Continues Telemetry Heart Rate 92 Telemetry SPO2 92 L EKG FL Interval 0.14 EKG QRS Interval 0.06 Telemetry Strip Reading NSR 09/23/22 20:50 09/23/22 20:00 09/23/22 20:00 Temperature 96.9 F L Temperature Source Temporal Artery Scan Pulse Rate 70 Respiratory Rate 18 Blood Pressure 106/66 Blood Pressure Mean 79 Blood Pressure Location Right Arm Blood Pressure Position Supine O2 Sat by Pulse Oximetry 95 Oxygen Delivery Method Nasal Cannula Nasal Cannula Nasal Cannula Oxygen Flow Rate 2 2 2 Telemetry Type Telemetry Monitoring Telemetry Heart Rate Telemetry SPO2 EKG FL Interval EKG QRS Interval Telemetry Strip Reading 09/24/22 01:00 09/24/22 05:38 09/24/22 05:58 Temperature 96.9 F L Temperature Source Temporal Artery Scan Pulse Rate 73 Respiratory Rate 20 Blood Pressure 93/56 L Blood Pressure Mean 68 Blood Pressure Location Left Arm Blood Pressure Position Supine O2 Sat by Pulse Oximetry 96 98 Oxygen Delivery Method Nasal Cannula Nasal Cannula Oxygen Flow Rate 2 2 Telemetry Type Remote Telemetry Telemetry Monitoring Continues Telemetry Heart Rate 60 Telemetry SPO2 94 EKG FL Interval 0.14 EKG QRS Interval 0.06 Telemetry Strip Reading NSR 09/24/22 10:00 09/24/22 08:00 09/24/22 07:00 Temperature 96.6 F L Temperature Source Temporal Artery Scan Pulse Rate 87 Respiratory Rate 16 Blood Pressure 103/61 Blood Pressure Mean 75 Blood Pressure Location Right Arm Blood Pressure Position Sitting O2 Sat by Pulse Oximetry 91 L Oxygen Delivery Method Room Air Nasal Cannula Oxygen Flow Rate 1 Telemetry Type Remote Telemetry Telemetry Monitoring Continues Telemetry Heart Rate 68 Telemetry SPO2 EKG FL Interval 0.14 EKG QRS Interval 0.06 Telemetry Strip Reading sr Lab Results Lab Results: Lab Results: Last 24 Hours 09/24/22 08:46 WBC 34.70 H D RBC 4.44 Hgb 13.1 Hct 39.3 MCV 88.5 MCH 29.5 MCHC 33.3 RDW Coeff of Xavier 14.0 Plt Count 417 D Immature Gran % (Auto) 3.3 Neut % (Auto) 85.2 H Lymph % (Auto) 7.8 L [place] % (Auto) 3.5 Eos % (Auto) 0.0 Baso % (Auto) 0.2 Neut # (Auto) 29.6 H Lymph # (Auto) 2.7 [place] # (Auto) 1.2 Eos # (Auto) 0.0 Baso # (Auto) 0.1 Immature Gran # (Auto) 1.1 H Sodium 138.4 Potassium 3.98 Chloride 105.0 Carbon Dioxide 26.7 Anion Gap 10.68 BUN 12.5 Creatinine 0.50 L Estimated GFR (MDRD) 126.00 BUN/Creatinine Ratio 25.00 Glucose 143.3 H Calcium 8.98 Total Bilirubin 0.18 L AST 29.3 ALT 29.0 Alkaline Phosphatase 94.6 Total Protein 6.89 Albumin 3.48 L Globulin 3.41 Albumin/Globulin Ratio 1.02 Additional Comments Additional Comments: I have independently reviewed and interpreted the labs/EKGs/imaging ordered during this hospital stay. I have reviewed outside records that are available in our EMR that pertain to medical stay including imaging/notes/labs from previous visits. Active Medications Active Medications: Medications Generic Name Dose Route Start Last Admin Trade Name Freq PRN Reason Stop Dose Admin Acetaminophen 650 mg 09/22/22 20:50 09/22/22 22:24 Acetaminophen 325 Mg Tablet PO 650 mg Q4-6H PRN Administration Mild/Moderate Pain Al Hydroxide/Mg Hydroxide 30 ml 09/22/22 20:54 Mag Hydrox/Al Hydrox/Simeth 30 Ml Cup PO BID PRN Heartburn Albuterol/Ipratropium 3 ml 09/23/22 00:00 09/24/22 05:10 Ipratropium/Albuterol Vial.Neb NEB 3 ml RTQ6H GRACIELA Administration Levofloxacin/Dextrose 750 mg in 150 mls @ 100 mls/hr 09/23/22 21:00 09/23/22 20:00 Levaquin 750 Mg/150 Ml D5w IV 09/26/22 20:59 100 mls/hr BEDTIME GRACIELA Administration Methylprednisolone Sodium Succinate 40 mg 09/22/22 21:00 09/24/22 05:54 Methylprednisolone Sod Succ/Pf 40 Mg/Ml Vial IVP 40 mg Q8H GRACIELA Administration Ondansetron HCl 4 mg 09/22/22 20:54 Ondansetron Hcl/Pf 4 Mg/2 Ml Sdv IVP Q8H PRN Nausea / Vomiting Sodium Chloride 1 syr 09/23/22 13:00 09/24/22 05:55 0.9% Sodium Chloride 10 Ml Disp.Syrin IVF 1 syr Q8HR GRACIELA Administration Valacyclovir HCl 1,000 mg 09/23/22 10:00 09/24/22 08:43 Valacyclovir Hcl 500 Mg Tablet PO 09/29/22 23:59 1,000 mg BID GRACIELA Administration Plan Plan: 1. Sepsis in the setting of community acquired pneumonia - blood cultures preliminary negative after 24 hours, sputum culture pending, continue levaquin, NS@125mL/hr, solumedrol 40 mg Q8H, nebs, telemetry 2. Acute Hypoxic Respiratory Failure in setting of CAP and COPD - RT following, wean off O2 as tolerated, nebs, solumedrol 40 mg Q8H, failed 3-step O2 test 3. Community Acquired Pneumonia - R upper lobe, no s/sx of aspiration noted from patient, treating with lobo 4. COPD - see above plan 5. Herpes simplex, oral - treating with course of valtrex 1G BID x 7 days 6. Tobacco use - nicotine patch if patient desires, discussed smoking cessation 7. Anxiety/Depression - no longer taking medications, no SI/HI or current issues Patient does not have insurance and is unable to afford home oxygen out of pocket. Plan to keep in hospital until patient able to go home safely without oxygen - continue to wean as patient is able to tolerate. Review Statement Review Statement: I have personally discussed and reviewed the patient's visit/currently labs/imaging/decision making with Dr. Loredo, my supervising attending. Greater that 50 minutes spent with patient, 50% of the time spent with this patient was devoted to counseling and coordination of care.
--- NOTE | 2022-09-24 12:25 | CT ---
EXAM: CTA CHEST FOR PE HISTORY: Shortness of breath COMPARISON: Chest radiograph from 09/22/2022 TECHNIQUE: CTA of the chest was performed from the lung apices to the upper abdomen after Omnipaqu e IV contrast was administered using PE protocol. 3-D imaging was also provided. FINDINGS: No PE. No CT findings of acute right ventricular strain or pulmonary infarct. There are scattered areas of consolidation and ground-glass densities in both lungs most notably in t he mid lungs anteriorly in the right lower lobe. No pleural effusion. Mediastinal and hilar lymphadenopathy including an index 0.2 cm precarinal lymph node. IMPRESSION: No PE. Scattered areas of consolidation and ground-glass densities, peribronchial wall thickening and mucus plugging, concerning for multifocal pneumonia. Mediastinal and hilar lymphadenopathy, possibly reactive. Clinical imaging follow-up to ensure resolution and exclude other etiologies. All CT scans are performed using dose optimization techniques as appropriate to the performed exam an d include at least one of the following: Automated exposure control, adjustment of the mA and/or kV according t o size, and the use of iterative reconstruction technique.
--- NOTE | 2022-09-24 13:43 | DCSUM ---
Admission Date Admission Date: 09/22/22 Discharge Date Discharge Date: 09/24/22 Admission Diagnosis Admission Diagnosis: Sepsis, Community Acquired Pneumonia, COPD exacerbation Discharge Diagnosis Discharge Diagnosis: Community Acquired Pneumonia, COPD Exacerbation Hospital Provider Hospital Provider: SILVESTRE DOZIER, [facility] Summary of History and Physical Summary of History and Physical: 62 yo female presented to the ER last night for complaints of shortness of breath and fatigue. Patient states that she has not been feeling well for at least a week with symptoms of fatigue, cough, chills, congestion, and shortness of breath. The shortness of breath started over the last 2 days. Also reported an episode of diarrhea. Denies any fever, chest or back pain, N/V. She is a heavy smoker of 2 ppd. Hospital Course Subjective: Course of treatment: 1. Sepsis in the setting of community acquired pneumonia - blood cultures prelimary 24 hours negative, continue levaquin, NS@125mL/hr, solumedrol 40 mg Q8H, nebs, telemetry 2. Acute Hypoxic Respiratory Failure in setting of CAP and COPD - RT following, wean off O2 as tolerated, nebs, solumedrol 40 mg Q8H, failed 3-step O2 test 3. Community Acquired Pneumonia - R upper lobe, no s/sx of aspiration noted from patient, treating with levaquin 4. COPD - see above plan 5. Herpes simplex, oral - treating with course of valtrex 1G BID x 7 days 6. Tobacco use - nicotine patch if patient desires, discussed smoking cessation 7. Anxiety/Depression - no longer taking medications, no SI/HI or current issues No events overnight. No fever. CTA completed to r/o PE which was negative. Showed multifocal pneumonia. Patient failed 3 step O2 trial today, qualifying for home O2. Patient does not have insurance and is unable to afford further hospital stay. clothing worker was able to setup home O2 for patient. Appearance: Pleasant, No Apparent Distress and Alert HEENT: MMM, Supple and No JVD CVS: No Murmur, No Rubs, No Gallop and No JVD Abdomen: Soft, Non-Tender and No Distention Respiratory: Other (no dyspnea, accessory muscle use, wheezing or crackles) Extremities: No Edema Vital Signs: Most Recent Vital Signs Temperature 96.6 F L 09/24/22 10:00 Temperature Source Temporal Artery Scan 09/24/22 10:00 Temperature Source Infrared 09/22/22 17:28 Pulse Rate 87 09/24/22 10:00 Respiratory Rate 16 09/24/22 10:00 Blood Pressure 103/61 09/24/22 10:00 Blood Pressure Mean 75 09/24/22 10:00 Blood Pressure Right Arm 111/77 09/22/22 21:37 Blood Pressure Location Right Arm 09/24/22 10:00 Blood Pressure Position Sitting 09/24/22 10:00 O2 Sat by Pulse Oximetry 96 09/24/22 10:00 Oxygen Delivery Method Nasal Cannula 09/24/22 10:00 Oxygen Flow Rate 2 09/24/22 10:00 Height 5 ft 2 in 09/22/22 21:37 Weight 121 lb 09/22/22 21:37 Telemetry Type Remote Telemetry 09/24/22 07:00 Telemetry Monitoring Continues 09/24/22 07:00 Telemetry Heart Rate 68 09/24/22 07:00 Telemetry SPO2 94 09/24/22 01:00 EKG UT Interval 0.14 09/24/22 07:00 EKG QRS Interval 0.06 09/24/22 07:00 Telemetry Strip Reading sr 09/24/22 07:00 Imaging: EXAM: CTA CHEST FOR PE IMPRESSION: No PE. Scattered areas of consolidation and ground-glass densities, peribronchial wall thickening and mucus plugging, concerning for multifocal pneumonia. Mediastinal and hilar lymphadenopathy, possibly reactive. Clinical imaging follow-up to ensure resolution and exclude other etiologies. Lab Results Last 24 Hours: 09/24/22 08:46 WBC 34.70 H D RBC 4.44 Hgb 13.1 Hct 39.3 MCV 88.5 MCH 29.5 MCHC 33.3 RDW Coeff of Xavier 14.0 Plt Count 417 D Immature Gran % (Auto) 3.3 Neut % (Auto) 85.2 H Lymph % (Auto) 7.8 L [place] % (Auto) 3.5 Eos % (Auto) 0.0 Baso % (Auto) 0.2 Neut # (Auto) 29.6 H Lymph # (Auto) 2.7 [place] # (Auto) 1.2 Eos # (Auto) 0.0 Baso # (Auto) 0.1 Immature Gran # (Auto) 1.1 H Sodium 138.4 Potassium 3.98 Chloride 105.0 Carbon Dioxide 26.7 Anion Gap 10.68 BUN 12.5 Creatinine 0.50 L Estimated GFR (MDRD) 126.00 BUN/Creatinine Ratio 25.00 Glucose 143.3 H Calcium 8.98 Total Bilirubin 0.18 L AST 29.3 ALT 29.0 Alkaline Phosphatase 94.6 Total Protein 6.89 Albumin 3.48 L Globulin 3.41 Albumin/Globulin Ratio 1.02 Discharge Instructions Discharge Planning: Discharge Planning > 40 minutes Activity as tolerated. Levaquin 500 mg x 7 days Medrol dose pack until complete Valcyclovir 1000 mg bid x 5 days Wear O2 continuous until follow-up with PCP and ability to tolerate room air without becoming short of breath on exertion. Medications Given This Visit: Medications Generic Name Dose Route Start Last Admin Trade Name Freq PRN Reason Stop Dose Admin Acetaminophen 650 mg 09/22/22 20:50 09/22/22 22:24 Acetaminophen 325 Mg Tablet PO 650 mg Q4-6H PRN Administration Mild/Moderate Pain Al Hydroxide/Mg Hydroxide 30 ml 09/22/22 20:54 Mag Hydrox/Al Hydrox/Simeth 30 Ml Cup PO BID PRN Heartburn Albuterol/Ipratropium 3 ml 09/23/22 00:00 09/24/22 11:00 Ipratropium/Albuterol Vial.Neb NEB 3 ml RTQ6H GRACIELA Administration Levofloxacin/Dextrose 750 mg in 150 mls @ 100 mls/hr 09/23/22 21:00 09/23/22 20:00 Levaquin 750 Mg/150 Ml D5w IV 09/26/22 20:59 100 mls/hr BEDTIME GRACIELA Administration Methylprednisolone Sodium Succinate 40 mg 09/22/22 21:00 09/24/22 12:53 Methylprednisolone Sod Succ/Pf 40 Mg/Ml Vial IVP 40 mg Q8H GRACIELA Administration Ondansetron HCl 4 mg 09/22/22 20:54 Ondansetron Hcl/Pf 4 Mg/2 Ml Sdv IVP Q8H PRN Nausea / Vomiting Sodium Chloride 1 syr 09/23/22 13:00 09/24/22 12:53 0.9% Sodium Chloride 10 Ml Disp.Syrin IVF 1 syr Q8HR GRACIELA Administration Valacyclovir HCl 1,000 mg 09/23/22 10:00 09/24/22 08:43 Valacyclovir Hcl 500 Mg Tablet PO 09/29/22 23:59 1,000 mg BID GRACIELA Administration Medications Given This Visit: Medications at Discharge (Home Meds & RX) aspirin 81 mg chewable tablet (Aspirin Childrens) 81 mg PO DAILY 09/22/22 fluticasone propionate 50 mcg/actuation nasal spray,suspension (24 Hour Allergy Relief) 2 spray intranasal DAILY PRN allergy symptoms 09/22/22 Discharge Plan Discharge Discharge Orders: Discharge Patient (ONCE); Ordered 09/24/22 Ordered By: SAY FERREIRA Activity Restrictions/Additional Instructions: Activity as tolerated. Valcyclovir 1000 mg bid x 5 days to treat cold sores Levaquin 500 mg x 7 days for pneumonia Medrol dose pack until complete Albuterol inhaler for shortness of breath every 4-6 hours as needed Wear O2 continuous until follow-up with PCP and ability to tolerate room air without becoming short of breath on exertion. Instructions: COPD (Chronic Obstructive Pulmonary Disease) (GEN), Community Acquired Pneumonia (GEN) Patient Disposition: HOME SELF-CARE Prescriptions: New valacyclovir 500 mg Tablet 1,000 mg PO BID 5 Days Qty: 10 0RF levofloxacin 500 mg tablet 500 mg PO DAILY Qty: 7 0RF methylprednisolone [Medrol (Shawn)] 4 mg tablets,dose pack See Rx Instructions .ROUTE .COMPLEX Qty: 21 0RF Rx Instructions: orally per package directions albuterol sulfate 90 mcg/actuation HFA aerosol inhaler 2 puff inhalation Q4-6H PRN (Reason: shortness of breath or wheezing) Qty: 8.5 0RF Discontinued aspirin [Aspirin Childrens] 81 mg tablet,chewable 81 mg PO DAILY fluticasone propionate [24 Hour Allergy Relief] 50 mcg/actuation spray,suspension 2 spray intranasal DAILY PRN (Reason: allergy symptoms) Rx Instructions: administer into each nostril Did you review [place] MARINE FARMER for ALL controlled substances?: No Discussed opioids are addictive and Narcan is available by prescription or from pharmacy.: No Condition: Stable
== END 2022-09-24 15:55 | disposition home or self-care (01) ==
LOC: MEDSURG B 17:19 → ED 17:19 → MEDSURG B 21:43
PROVIDERS: ADMIT Hospitalist; ATTEND Nurse Practitioner Family
DX: R06.2 Wheezing; B00.9 Herpesviral infection, unspecified; A41.9 Sepsis, unspecified organism; R00.0 Tachycardia, unspecified; R61 Generalized hyperhidrosis; Z79.82 Long term (current) use of aspirin; J96.01 Acute respiratory failure with hypoxia; J44.9 Chronic obstructive pulmonary disease, unspecified; F41.1 Generalized anxiety disorder; Z20.822 Contact with and (suspected) exposure to COVID-19; Z90.710 Acquired absence of both cervix and uterus; K21.9 Gastro-esophageal reflux disease without esophagitis; J18.9 Pneumonia, unspecified organism; F32.0 Major depressive disorder, single episode, mild; Z79.899 Other long term (current) drug therapy; Z51.81 Encounter for therapeutic drug level monitoring; F17.210 Nicotine dependence, cigarettes, uncomplicated

== ENCOUNTER 2023-08-19 10:27 | Observation (INO) ==
[2023-08-19 11:03] LABS: BASOPHILS % (AUTO) 0.1 % (0.0-3.0); EOSINOPHILS # (AUTO) 0.3 K/ul (0.0-0.7); EOSINOPHILS % (AUTO) 1.8 % (0.0-7.0); HEMATOCRIT 45.5 % (37.0-47.0); HEMOGLOBIN 14.8 g/dl (12.0-16.0); IMMATURE GRANULOCYTE # (AUTO) 0.1 (0.0-1.0); IMMATURE GRANULOCYTE % (AUTO) 0.5 % (0.0-5.0); LYMPHOCYTES # (AUTO) 0.8 K/uL (0.60-3.4); LYMPHOCYTES % (AUTO) 4.7 (10.0-50.0); MEAN CORPUSCULAR HEMOGLOBIN 28.3 pg (27.0-31.0); MEAN CORPUSCULAR HGB CONC 32.5 (31.8-35.4); MONOCYTES # (AUTO) 0.6 K/uL (0.4-2.0); MONOCYTES % (AUTO) 3.3 (0-10); NEUTROPHILS # (AUTO) 15.6 K/ul (2.0-6.9); NEUTROPHILS % (AUTO) 89.6 % (42.2-75.2); PLATELET COUNT 197 10^3/uL (140-440); RDW COEFFICIENT OF VARIATION 13.7 % (11.6-14.8); RED BLOOD COUNT 5.23 10^6/ul (4.20-5.40); WHITE BLOOD COUNT 17.41 K/ul (4.6-10.2)
[2023-08-19] MEDS: DOXY-100 100 MG in SODIUM CHLORIDE 100ML 100 ML IV ONE (11:10)
[2023-08-19] MEDS: ZOFRAN 4 MG/2 ML IVP STA (11:11)
[2023-08-19] MEDS: SODIUM CHLORIDE 1,000 ML IV ONE (11:11)
[2023-08-19] MEDS: DILAUDID 0.5 MG/0.5 ML SYRINGE IVP STA ×2 (11:12→12:31)
[2023-08-19] MEDS: DECADRON IVP ONE (11:13)
--- NOTE | 2023-08-19 11:13 | ED.PDOC ---
General ED Provider: Dr. KIM TALLEY DO Chief Complaint: Bite Stated Complaint: 63-year-old female presents to the ER reporting a spider bite on her right inner thigh. This happened around 11:00 yesterday morning, approximately 24 hours ago. Since that time she has had increasing pain. She went to work last night and stated that it hurt throughout the entire evening. The pain got too intense today which prompted her visit to the emergency department. She denies distal paresthesia or weakness. Denies chronic medical problems or any medications whatsoever. She states that it is a spider bite and does have a picture of the spider on her telephone. On my examination of this picture, this is a light brown-colored spider with a medium to narrow size body. There does appear to be a fiddle shape on its thorax consistent with brown recluse. Time Seen by Provider: 08/19/23 10:32 Information Source: Patient Nursing and Triage Documentation Reviewed and Agree: Yes What is Opioid Naive?: *Opioid Naive implies the patient is not already taking opioids or not chronically receiving opioids on a daily basis. *PRN dosing is not "usually" associated with tolerance. *Patients are at higher risk of over-sedation and aspiration. What is Opioid Tolerant?: *Opioid Tolerance implies less than the expected response to an opioid. *Acquired tolerance is defined by the patient taking 60mg of oral morphine daily (or equianalgesic dose of another opioid) for 1 week or more. *Often associated with chronic pain. *May take more than usual dose to achieve desired pain control. Review of Systems Review Of Systems Constitutional: Reports No symptoms; Denies Fever or Sweats Respiratory: Reports No symptoms Cardiac: Reports No symptoms GI: Reports No symptoms : Reports No symptoms All Other Systems: Reviewed and Negative [facility] Medical History (Updated 08/19/23 @ 13:20 by KIM TALLEY DO) COPD (chronic obstructive pulmonary disease) J44.9 - Chronic obstructive pulmonary disease, unspecified (ICD-10) Major depressive disorder, single episode, mild F32.0 - Major depressive disorder, single episode, mild (ICD-10) Generalized anxiety disorder F41.1 - Generalized anxiety disorder (ICD-10) Gastroesophageal reflux disease K21.9 - Gastro-esophageal reflux disease without esophagitis (ICD-10) Allergies T78.40XA - Allergy, unspecified, initial encounter (ICD-10) Arthritis M19.90 - Unspecified osteoarthritis, unspecified site (ICD-10) Family History Mother Schizophrenic disorder Brain tumor FATHER Alcoholic Social History Smoking and tobacco status: Current every day smoker Tobacco type: cigarettes Smoking packs per day: 1.5 Tobacco: How many years used: 12 Quit status: has quit before Alcohol intake: former Substance use type: does not use Brooke/anglican: SABIANISM Special brooke needs: No Agree to transfusion: Yes Adopted: No Caregiver/support person: No Household members: none Housing: other Marital status: S SINGLE Lives independently: Yes Number of children: 1 Number of grandchildren: 2 Highest education level completed: high school graduate Financial difficulty paying for basics: not very hard service: No Current occupational status: employed 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) Pets and animals: Yes (3 cats) Leisure activites: reading and other History of recent travel: No Sexually active: No Do you think of yourself as: straight/heterosexual Current gender identity: female Seatbelt use: always Drives intoxicated or rides with intoxicated skip load driver: No Water heater temperature set < 120 degrees: Yes Working smoke detector in home: Yes Fire extinguisher in home: No Carbon monoxide detector in home: No Firearms in home: No Surgical History Status post hysterectomy Z90.710 - Acquired absence of both cervix and uterus (ICD-10) Female Reproductive History Menstrual Hx Hysterectomy: Yes Hx Tubal Ligation: No Physical Exam Physical Exam Appearance: Reports Well-appearing and Well-nourished; Denies No pain distress Pain Distress: Severe (Seems to be a pain out of proportion) Eyes: Reports GET, EOMI and Conjunctiva clear ENT: Reports Ears normal, Nose normal and Oropharynx normal Neck: Supple Respiratory: Reports Airway patent, Breath sounds clear and Respirations nonlabored Cardiovascular: Reports Pulses normal and Tachycardia Musculoskeletal: Reports Normal strength, ROM intact, No edema and Other (Right inner thigh proximally there is a large area of ecchymosis surrounded by a ring of erythema. measures 15.5x13.5cm. flat, no pustule or vesicle) Skin: Reports Warm, Dry and Normal color (except lesion noted above on R thigh) Neurological: Reports Sensation intact, Motor intact, Alert and Oriented Psychiatric: Reports Affect appropriate and Mood appropriate Course Course 08/19/23 10:58 08/19/23 10:58 Orders, Labs, Meds: Lab Review 08/19/23 10:58 WBC 17.41 H RBC 5.23 Hgb 14.8 Hct 45.5 MCV 87.0 MCH 28.3 MCHC 32.5 RDW Coeff of Xavier 13.7 Plt Count 197 Immature Gran % (Auto) 0.5 Neut % (Auto) 89.6 H Lymph % (Auto) 4.7 L [place] % (Auto) 3.3 Eos % (Auto) 1.8 Baso % (Auto) 0.1 Neut # (Auto) 15.6 H Lymph # (Auto) 0.8 [place] # (Auto) 0.6 Eos # (Auto) 0.3 Baso # (Auto) 0.0 Immature Gran # (Auto) 0.1 PT 10.9 INR 1.05 APTT 27.5 Sodium 131.4 L Potassium 4.00 Chloride 102.7 Carbon Dioxide 23.4 Anion Gap 9.30 BUN 15.0 Creatinine 0.69 Estimated GFR (MDRD) 86.00 BUN/Creatinine Ratio 21.73 Glucose 117.8 H Lactic Acid 0.95 Calcium 9.18 Total Bilirubin 1.18 AST 21.7 ALT 17.9 Alkaline Phosphatase 80.9 Total Protein 7.22 Albumin 4.11 Globulin 3.11 Albumin/Globulin Ratio 1.32 Procalcitonin 0.41 H Orders Category Date Time Status ADMIT OBSERVATION [PLACE PATIENT OBSERVATION] .TO ADMISSION 08/19/23 13:05 Active MEDSURG (NON-MONITORED BED) NPO REMINDER: IMAGING ONCE CARE 08/19/23 11:28 Completed Ice Pack [ED APPLY ICE AFFECTED AREA] .ONCE EMERGENCY 08/19/23 10:43 Active BLOOD CULTURE (ED ONLY) Stat LAB 08/19/23 11:36 Received CBC W/ AUTO DIFF Stat LAB 08/19/23 10:58 Completed CMP [COMPREHENSIVE METABOLIC PANEL] Stat LAB 08/19/23 10:58 Completed COVID [SARS COV-2 RNA RAPID WARNER] Stat LAB 08/19/23 13:16 Ordered LACTIC ACID Stat LAB 08/19/23 10:58 Completed PROCALCITONIN Stat LAB 08/19/23 10:58 Completed PT WITH INR Stat LAB 08/19/23 10:58 Completed PTT [PARTIAL THROMBOPLASTIN TIME] Stat LAB 08/19/23 10:58 Completed URINALYSIS C & S IF INDICATED Stat LAB 08/19/23 11:14 Uncollected URINE CULTURE Stat LAB 08/19/23 11:14 Uncollected Dexamethasone Sod Phosphate [Decadron] Meds 08/19/23 10:43 Discontinued 10 mg IVP ONCE ONE Doxycycline Hyclate Inj [Doxy-100] 100 mg Meds 08/19/23 10:43 Discontinued 0.9 % Sodium Chloride [Sodium Chloride 100Ml] 100 ml IV ONCE Hydromorphone HCl [Dilaudid 0.5 mg/0.5 ml Syringe] Meds 08/19/23 10:48 Discontinued 0.5 mg IVP ONCE STA Hydromorphone HCl [Dilaudid 0.5 mg/0.5 ml Syringe] Meds 08/19/23 12:20 Discontinued 0.5 mg IVP ONCE STA Ondansetron HCl/Pf [Zofran 4 mg/2 ml] Meds 08/19/23 10:48 Discontinued 4 mg IVP ONCE STA Sodium Chloride 0.9% [Sodium Chloride] 1,000 ml Meds 08/19/23 10:43 Discontinued IV BOLUS Sodium Chloride 0.9% [Sodium Chloride] 1,000 ml Meds 08/19/23 12:51 Active IV BOLUS Vancomycin/Water For Inj (Peg) [Vancomycin 1 Gram/200 Meds 08/19/23 12:00 Discontinued ml Premix] 1 gm in [address] FEMUR RIGHT WITH CONTRAST Stat RADS 08/19/23 11:28 Completed Medications Generic Name Dose Route Start Last Admin Trade Name Freq PRN Reason Stop Dose Admin Sodium Chloride 1,000 mls @ 1,000 mls/hr 08/19/23 12:51 08/19/23 12:57 Sodium Chloride IV 08/19/23 13:50 1,000 mls/hr BOLUS STA Administration Discontinued Medications Generic Name Dose Route Start Last Admin Trade Name Freq PRN Reason Stop Dose Admin Dexamethasone Sodium Phosphate 10 mg 08/19/23 10:43 08/19/23 11:13 Dexamethasone Sod Phos 10 Mg/Ml Inj IVP 08/19/23 10:44 10 mg ONCE ONE Administration Hydromorphone HCl 0.5 mg 08/19/23 10:48 08/19/23 11:12 Hydromorphone 0.5 Mg/0.5 Ml Syringe IVP 08/19/23 10:49 0.5 mg ONCE STA Administration Hydromorphone HCl 0.5 mg 08/19/23 12:20 08/19/23 12:31 Hydromorphone 0.5 Mg/0.5 Ml Syringe IVP 08/19/23 12:21 0.5 mg ONCE STA Administration Sodium Chloride 1,000 mls @ 1,000 mls/hr 08/19/23 10:43 08/19/23 12:51 Sodium Chloride IV 08/19/23 11:42 Infused BOLUS ONE Infusion Doxycycline Hyclate 100 mg/ 100 mls @ 50 mls/hr 08/19/23 10:43 08/19/23 11:10 Sodium Chloride IV 08/19/23 12:42 50 mls/hr ONCE ONE Administration VANCOMYCIN/WATER FOR INJ (PEG) 1 gm in 200 mls @ 200 mls/hr 08/19/23 12:00 Vancomycin 1 Gram/200 Ml Premix IV 08/19/23 12:59 ONCE ONE Ondansetron HCl 4 mg 08/19/23 10:48 08/19/23 11:11 Ondansetron Hcl/Pf 4 Mg/2 Ml Sdv IVP 08/19/23 10:49 4 mg ONCE STA Administration Vital Signs: Temp Pulse Resp BP Pulse Ox 08/19/23 10:30 100.2 F 112 H 18 113/77 90 L Discharge Plan Discharge Patient Disposition: PLACED OBSERVATION Discharge Problem: Cellulitis, Spider bite Instructions: Cellulitis (ED), Brown Recluse Spider Bite (ED) Prescriptions: No Action albuterol sulfate 90 mcg/actuation HFA aerosol inhaler 2 puff inhalation Q4-6H PRN (Reason: shortness of breath or wheezing) Qty: 8.5 0RF aspirin 81 mg capsule 81 mg PO DAILY Did you review [place] LAUNDRY PRESSER for ALL controlled substances?: No Discussed opioids are addictive and Narcan is available by prescription or from pharmacy.: No ED Provider: KIM TALLEY Condition: Stable Physician Progress Note: 63-year-old female presents to the ER reporting spider bite to the right proximal thigh. She has a picture of the spider and it does appear to be a brown recluse. She has pain out of proportion in my clinical opinion, she has a large area of ecchymosis with surrounding erythema. This is quite concerning overall. She is afebrile however but she is tachycardic. Cannot exclude sepsis. Will initiate sepsis workup. Initially I put in a dose of doxycycline, I will add a dose of vancomycin to this. Doxycycline is chosen specifically due to the concern for a brown recluse bite. Vancomycin added for further MRSA coverage. Will obtain coagulation panel in addition to laboratory workup and consider CT scan to rule out underlying air in the case of any necrotizing fasciitis. Ice pack placed on area and will consider TXA. [] 1112: Patient continues to appear uncomfortable. Her white blood cell count is over 17. She is receiving IV antibiotics.
[2023-08-19] MEDS ORDERED: VANCOMYCIN VIAL (IF PREGNANT) 1 GM in SODIUM CHLORIDE 250 ML IV STA (11:14)
[2023-08-19] MEDS ORDERED: SODIUM CHLORIDE 1,000 ML IV ONE (11:14)
[2023-08-19 11:17] LABS: ALANINE AMINOTRANSFERASE 17.9 U/L (0-35); ALBUMIN 4.11 g/dL (3.5-5.0); ALKALINE PHOSPHATASE 80.9 U/L (53-141); ASPARTATE AMINO TRANSFERASE 21.7 U/L (14-36); BILIRUBIN,TOTAL 1.18 mg/dL (0.2-1.3); CALCIUM 9.18 mg/dL (8.4-10.2); CARBON DIOXIDE 23.4 mmol/L (22-30.0); CHLORIDE 102.7 mmol/L (98-107); CREATININE 0.69 mg/dL (0.60-1.30); GLUCOSE 117.8 mg/dL (74-106); PARTIAL THROMBOPLASTIN TIME 27.5 SEC (23.9-40.0); PROTHROMBIN TIME 10.9 SEC (9.3-11.0); SODIUM 131.4 mmol/L (134.5-145); TOTAL PROTEIN 7.22 g/dL (6.3-8.2)
--- NOTE | 2023-08-19 12:31 | CT ---
EXAM: CT RIGHT FEMUR WITH CONTRAST HISTORY: Spider bite, pain COMPARISON: None. FINDINGS: Axial CT images of the right femur with contrast and multiplanar reformatted images. No discrete fracture line. No dislocation. Degenerative changes to the hip and knee. Superficial soft tissue edema at the anterior and medial aspect of the right side. No drainable flui d collection. Prominent inguinal lymph nodes, possibly reactive. IMPRESSION: Findings suggesting cellulitis. No drainable fluid collection. Prominent right inguinal lymph nodes, possibly reactive. Additional findings as described. All CT scans are performed using dose optimization techniques as appropriate to the performed exam an d include at least one of the following: Automated exposure control, adjustment of the mA and/or kV according t o size, and the use of iterative reconstruction technique.
[2023-08-19] MEDS: SODIUM CHLORIDE 1,000 ML IV STA (12:57)
[2023-08-19 13:35] LABS: SARS COV-2 RNA RAPID NAAT NEGATIVE (NEGATIVE)
[2023-08-19] MEDS ORDERED: ZOFRAN 4 MG/2 ML IVP PRN (13:46)
--- NOTE | 2023-08-19 13:55 | PCM ---
Date of Service Date Seen by Provider: 08/19/23 Time Seen by Provider: 13:30 Admit Day/Time Admission Date: 08/19/23 Admission Time: 13:05 Reason for Admission Chief Complaint: CELLULITIS/SPIDERBITE Hospital Provider Hospital Provider[facility]ID[facility] History of Present Illness History of Present Illness: Patient is a 63 year old female with history of tobacco use and limited access to health care who presents for spider bite of her right upper thigh occurring about 1100 on 08/18/23. Patient states she felt the bite right away and even was able to take a picture of the spider, which per ERP appears to be a brown recluse. Patient noted to be tachycardic. WBC count elevated. CT femur negative for acute findings. She was given 2L of fluid and IV pain medication. She received doxy and then vanc. She denies hx of diabetes. She is a daily smoker. Only complains of pain at this time. Admitted to med surg. Case Discussed With Case Discussed With: Patient's case was discussed with the ER Physicians, Dr. Sainz. [facility] Medical History COPD (chronic obstructive pulmonary disease) J44.9 - Chronic obstructive pulmonary disease, unspecified (ICD-10) Major depressive disorder, single episode, mild F32.0 - Major depressive disorder, single episode, mild (ICD-10) Generalized anxiety disorder F41.1 - Generalized anxiety disorder (ICD-10) Gastroesophageal reflux disease K21.9 - Gastro-esophageal reflux disease without esophagitis (ICD-10) Allergies T78.40XA - Allergy, unspecified, initial encounter (ICD-10) Arthritis M19.90 - Unspecified osteoarthritis, unspecified site (ICD-10) Surgical History Status post hysterectomy Z90.710 - Acquired absence of both cervix and uterus (ICD-10) Family History Mother Schizophrenic disorder Brain tumor FATHER Alcoholic Social History Smoking and tobacco status: Current every day smoker Tobacco type: cigarettes Smoking packs per day: 1.5 Tobacco: How many years used: 12 Quit status: has quit before Alcohol intake: former Substance use type: does not use Brooke/episcopal: [employer]ON[employer] Special brooke needs: No Agree to transfusion: Yes Adopted: No Caregiver/support person: No Household members: none Housing: other Marital status: S SINGLE Lives independently: Yes Number of children: 1 Number of grandchildren: 2 Highest education level completed: high school graduate Financial difficulty paying for basics: not very hard service: No Current occupational status: employed 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) Pets and animals: Yes (3 cats) Leisure activites: reading and other History of recent travel: No Sexually active: No Do you think of yourself as: straight/heterosexual Current gender identity: female Seatbelt use: always Drives intoxicated or rides with intoxicated compactor driver: No Water heater temperature set < 120 degrees: Yes Working smoke detector in home: Yes Fire extinguisher in home: No Carbon monoxide detector in home: No Firearms in home: No Allergies Allergies Allergy/AdvReac Type Severity Reaction Status Date / Time No Known Allergies Allergy Verified 08/19/23 10:38 Current Medications Home Medications albuterol sulfate 90 mcg/actuation aerosol inhaler 2 puff inhalation Q4-6H PRN shortness of breath or wheezing #8.5 grams 09/24/22 [Rx Confirmed 08/19/23 Last Taken Unknown] aspirin 81 mg capsule 81 mg PO DAILY 08/19/23 [History Confirmed 08/19/23 Last Taken Unknown] Home Acetaminophen (Acetaminophen 325 Mg Tablet) 650 mg PO Q4H PRN PRN Reason: Mild Pain Enoxaparin Sodium (Enoxaparin Sodium 40 Mg/0.4 Ml Syr) 40 mg SUBCUT DAILY GRACIELA Lactated Ringer's (Lactated Ringers) 1,000 mls @ 500 mls/hr IV BOLUS ONE Stop: 08/19/23 15:47 Ampicillin Sodium/Sulbactam (Sodium 3 gm/ Sodium Chloride) 100 mls @ 100 mls/hr IV Q6HR GRACIELA Stop: 08/22/23 13:59 VANCOMYCIN/WATER FOR INJ (PEG) (Vancomycin 1 Gram/200 Ml Premix) 1 gm in 200 mls @ 200 mls/hr IV Q12HR GRACIELA Stop: 08/22/23 20:59 Morphine Sulfate (Morphine Sulfate 2 Mg/Ml Syringe) 2 mg IVP Q6H PRN PRN Reason: MODERATE PAIN Ondansetron HCl (Ondansetron Hcl/Pf 4 Mg/2 Ml Sdv) 4 mg IVP Q6H PRN PRN Reason: Hyperglycemia Discontinued Medications Dexamethasone Sodium Phosphate (Dexamethasone Sod Phos 10 Mg/Ml Inj) 10 mg IVP ONCE ONE Stop: 08/19/23 10:44 Last Admin: 08/19/23 11:13 Dose: 10 mg Hydromorphone HCl (Hydromorphone 0.5 Mg/0.5 Ml Syringe) 0.5 mg IVP ONCE STA Stop: 08/19/23 10:49 Last Admin: 08/19/23 11:12 Dose: 0.5 mg Hydromorphone HCl (Hydromorphone 0.5 Mg/0.5 Ml Syringe) 0.5 mg IVP ONCE STA Stop: 08/19/23 12:21 Last Admin: 08/19/23 12:31 Dose: 0.5 mg Sodium Chloride (Sodium Chloride) 1,000 mls @ 1,000 mls/hr IV BOLUS ONE Stop: 08/19/23 11:42 Last Infusion: 08/19/23 12:51 Dose: Infused Doxycycline Hyclate 100 mg/ (Sodium Chloride) 100 mls @ 50 mls/hr IV ONCE ONE Stop: 08/19/23 12:42 Last Admin: 08/19/23 11:10 Dose: 50 mls/hr VANCOMYCIN/WATER FOR INJ (PEG) (Vancomycin 1 Gram/200 Ml Premix) 1 gm in 200 mls @ 200 mls/hr IV ONCE ONE Stop: 08/19/23 12:59 Sodium Chloride (Sodium Chloride) 1,000 mls @ 1,000 mls/hr IV BOLUS STA Stop: 08/19/23 13:50 Last Infusion: 08/19/23 14:05 Dose: Infused Ondansetron HCl (Ondansetron Hcl/Pf 4 Mg/2 Ml Sdv) 4 mg IVP ONCE STA Stop: 08/19/23 10:49 Last Admin: 08/19/23 11:11 Dose: 4 mg Opioid Naive vs. Tolerant Does Patient Take Opioids?: No Is Patient Opioid Naive?: Yes What is Opioid Naive?: *Opioid Naive implies the patient is not already taking opioids or not chronically receiving opioids on a daily basis. *PRN dosing is not "usually" associated with tolerance. *Patients are at higher risk of over-sedation and aspiration. Is Patient Opioid Tolerant?: No What is Opioid Tolerant?: *Opioid Tolerance implies less than the expected response to an opioid. *Acquired tolerance is defined by the patient taking 60mg of oral morphine daily (or equianalgesic dose of another opioid) for 1 week or more. *Often associated with chronic pain. *May take more than usual dose to achieve desired pain control. Review of Systems Constitutional: Reports Loss of appetite Head: Reports Normocephalic and Atraumatic Throat: Denies Sore Throat or Difficulty Swallowing Cardiovascular: Denies Chest pain or Edema Respiratory: Denies Cough or Shortness of air Gastrointestinal: Reports Nausea Genitourinary: Denies Dysuria or Frequency Dermatologic: Reports Other (+right upper thigh area of redness and pain ) Neurological: Denies Headache or Weakness Physical examination Most Recent Vital Signs: Most Recent Vital Signs Temperature 100.2 F 08/19/23 10:30 Temperature Source Infrared 08/19/23 10:30 Pulse Rate 112 H 08/19/23 10:30 Respiratory Rate 18 08/19/23 10:30 Blood Pressure 113/77 08/19/23 10:30 O2 Sat by Pulse Oximetry 90 L 08/19/23 10:30 Height 5 ft 08/19/23 10:30 Weight 123 lb 08/19/23 10:30 Telemetry Heart Rate 94 09/24/22 13:00 Telemetry SPO2 94 09/24/22 01:00 Appearance: Positive Well-appearing, Well-nourished, No Apparent Distress and Alert and Oriented x3 Skin: Positive Kathleen, Warm and Good Turgor HEENT: Positive Normocephalic and Atraumatic Neck: Positive Supple Chest/Lungs: Positive Clear to Auscultation Bilaterally; Negative Rales, Rhonci or Wheezes Heart: Positive RRR GI/: Positive Soft, Nontender and Bowel Sounds Normal Neurological: Positive Cranial Nerves Intact, Alert, Oriented and Muscle Strength 5/5 in Upper and Lower Extremities Bilaterally Psychiatric: Positive Oriented x4, Appropriate Mood and Appropriate Affect Additional Findings: Right upper anterior/medial thigh : Area measures about 15 x 13.5 cm, outlined by skin markler. Flat, no induration, no drainage. There is areas of discoloration noted. A very small vesicle noted. Labs This Visit Labs This Visit: Labs This Visit 08/19/23 08/19/23 10:58 13:15 WBC 17.41 H RBC 5.23 Hgb 14.8 Hct 45.5 MCV 87.0 MCH 28.3 MCHC 32.5 RDW Coeff of Xavier 13.7 Plt Count 197 Immature Gran % (Auto) 0.5 Neut % (Auto) 89.6 H Lymph % (Auto) 4.7 L [place] % (Auto) 3.3 Eos % (Auto) 1.8 Baso % (Auto) 0.1 Neut # (Auto) 15.6 H Lymph # (Auto) 0.8 [place] # (Auto) 0.6 Eos # (Auto) 0.3 Baso # (Auto) 0.0 Immature Gran # (Auto) 0.1 PT 10.9 INR 1.05 APTT 27.5 Sodium 131.4 L Potassium 4.00 Chloride 102.7 Carbon Dioxide 23.4 Anion Gap 9.30 BUN 15.0 Creatinine 0.69 Estimated GFR (MDRD) 86.00 BUN/Creatinine Ratio 21.73 Glucose 117.8 H Lactic Acid 0.95 Calcium 9.18 Total Bilirubin 1.18 AST 21.7 ALT 17.9 Alkaline Phosphatase 80.9 Total Protein 7.22 Albumin 4.11 Globulin 3.11 Albumin/Globulin Ratio 1.32 Procalcitonin 0.41 H SARS CoV-2 RNA Rapid WARNER Negative Imaging Imaging: EXAM: CT RIGHT FEMUR WITH CONTRAST HISTORY: Spider bite, pain COMPARISON: None. FINDINGS: Axial CT images of the right femur with contrast and multiplanar reformatted images. No discrete fracture line. No dislocation. Degenerative changes to the hip and knee. Superficial soft tissue edema at the anterior and medial aspect of the right side. No drainable fluid collection. Prominent inguinal lymph nodes, possibly reactive. IMPRESSION: Findings suggesting cellulitis. No drainable fluid collection. Prominent right inguinal lymph nodes, possibly reactive. Additional findings as described. Review Statement Review Statement: I have independently reviewed and interpreted the labs/EKGs/imaging that were ordered by the ER provider. I have reviewed all outside records that are available currently in our EMR including imaging/notes/labs from previous visits. Plan Plan: 1. Acute cellulitis in setting of spider bite - Suspect brown recluse. Meets sepsis criteria. Vanc and unasyn ordered. Blood cultures pending. Daily LDH ordered. Bili normal today. 2. Sepsis in setting of acute cellulitis - Plan as above. Blood cultures pending. Mrsa screen ordered. 3. Smoker - Pt declines nicotine patch. DVT Prophylaxis: Lovenox Time Spent: Greater than 80 minutes spent with patient, 50% of the time spent with this patient was devoted to counseling and coordination of care. [facility] Plannin minutes spent discussing advance care planning. Smoking Cessation: 3 minutes spent discussing smoking cessation. Admit to: Obs, patient is self pay Discussed Plan of Care with Dr. Dasia Loredo Medications Medication Orders: Medications Ordered Category Date Time Status Acetaminophen [Tylenol] Meds 08/19/23 13:46 Active 650 mg PO Q4H PRN Morphine Sulfate [Morphine 2 mg/ml Syringe] Meds 08/19/23 13:46 Active 2 mg IVP Q6H PRN Ondansetron HCl/Pf [Zofran 4 mg/2 ml] Meds 08/19/23 13:46 Active 4 mg IVP Q6H PRN Ringers Lactated Solution [Lactated Ringers] 1,000 ml Meds 08/19/23 13:48 Active IV BOLUS
[2023-08-19] MEDS: UNASYN 3 GM in SODIUM CHLORIDE 100ML 100 ML IV SCH (14:27)
[2023-08-19] MEDS: VANCOMYCIN 1 GRAM/200 ML PREMIX 1 GM/200 ML BAG IV ONE (14:30)
[2023-08-19 14:36] LABS: BILIRUBIN,URINE Negative (NEGATIVE); CLARITY,URINE Clear (CLEAR); COLOR,URINE Yellow (YELLOW); GLUCOSE, URINE (UA) Negative (NEGATIVE); KETONES,URINE 1+ (NEGATIVE); LEUKOCYTE ESTERASE ,URINE Negative (NEGATIVE); NITRITE,URINE Negative (NEGATIVE); PROTEIN,URINE Negative (NEGATIVE); URINE, BLOOD 2+ (NEGATIVE); UROBILINOGEN,URINE 0.2 (0.2)
[2023-08-19 15:01] VITALS: BMI 25.2
[2023-08-19] MEDS: LACTATED RINGERS 1,000 ML IV ONE (16:39)
[2023-08-19] MEDS: BOOSTRIX IM ONE (16:40)
[2023-08-19] MEDS: MORPHINE 2 MG/ML SYRINGE IVP PRN (19:27)
[2023-08-19] MEDS: VANCOMYCIN 1 GRAM/200 ML PREMIX 1 GM/200 ML BAG IV SCH (20:36)
[2023-08-20] MEDS: TYLENOL PO PRN (00:21)
[2023-08-20 05:26] LABS: BASOPHILS % (AUTO) 0.1 % (0.0-3.0); EOSINOPHILS # (AUTO) 0.4 K/ul (0.0-0.7); IMMATURE GRANULOCYTE # (AUTO) 0.1 (0.0-1.0); IMMATURE GRANULOCYTE % (AUTO) 0.7 % (0.0-5.0); LYMPHOCYTES # (AUTO) 0.8 K/uL (0.60-3.4); LYMPHOCYTES % (AUTO) 5.5 (10.0-50.0); MEAN CORPUSCULAR HEMOGLOBIN 28.7 pg (27.0-31.0); MEAN CORPUSCULAR HGB CONC 31.7 (31.8-35.4); MEAN CORPUSCULAR VOLUME 90.4 fl (81.0-99.0); MONOCYTES # (AUTO) 0.5 K/uL (0.4-2.0); MONOCYTES % (AUTO) 3.3 (0-10); NEUTROPHILS # (AUTO) 12.8 K/ul (2.0-6.9); NEUTROPHILS % (AUTO) 87.4 % (42.2-75.2); PLATELET COUNT 145 10^3/uL (140-440); RDW COEFFICIENT OF VARIATION 14.1 % (11.6-14.8); RED BLOOD COUNT 4.18 10^6/ul (4.20-5.40); WHITE BLOOD COUNT 14.62 K/ul (4.6-10.2)
[2023-08-20 05:34] LABS: HEMATOCRIT 37.8 % (37.0-47.0)
[2023-08-20 05:39] LABS: ALANINE AMINOTRANSFERASE 30.4 U/L (0-35); ALBUMIN 3.38 g/dL (3.5-5.0); ASPARTATE AMINO TRANSFERASE 36.1 U/L (14-36); BILIRUBIN,TOTAL 1.01 mg/dL (0.2-1.3); BLOOD UREA NITROGEN 11.1 mg/dL (7-17); CALCIUM 8.51 mg/dL (8.4-10.2); CHLORIDE 110.1 mmol/L (98-107); CREATININE 0.55 mg/dL (0.60-1.30); GLUCOSE 115.7 mg/dL (74-106); POTASSIUM 4.19 mmol/L (3.5-5.1); SODIUM 134.3 mmol/L (134.5-145); TOTAL PROTEIN 5.93 g/dL (6.3-8.2)
[2023-08-20] MEDS: LOVENOX SUBCUT SCH (08:07)
--- NOTE | 2023-08-20 10:44 | PCM.PROG ---
Date/Time Seen Date Seen by Provider: 08/20/23 Time Seen by Provider: 08:45 Provider Provider[facility] Chief Complaint Chief Complaint: CELLULITIS/SPIDERBITE Subjective Subjective: Patient states pain is improved. Eating and drinking well. The dark discoloration and redness has worsened today. Objective Appearance: Positive Well-appearing, Well-nourished, No Apparent Distress and Alert and Oriented x3 Chest/Lungs: Positive Clear to Auscultation Bilaterally; Negative Rales, Rhonci or Wheezes Heart: Positive RRR GI/: Positive Soft, Nontender, Bowel Sounds Normal and No Distention Neurological: Positive Cranial Nerves Intact, Alert, Oriented and Muscle Strength 5/5 in Upper and Lower Extremities Bilaterally Additional Findings: Right upper anterior/medial thigh : Erythema has worsened slightly outside of drawn lines. Black discoloration centrally has spread. Flat, no induration, no drainage. A very small vesicle noted. Vital Signs Vital Signs: Vital Signs: Last 24 Hours 08/19/23 14:15 08/19/23 14:15 08/19/23 15:00 Temperature 97.8 F Temperature Source Oral Pulse Rate 90 Respiratory Rate 20 Blood Pressure Blood Pressure Mean Blood Pressure Right Arm 106/56 Blood Pressure Location Blood Pressure Position Supine O2 Sat by Pulse Oximetry 95 Oxygen Delivery Method Room Air Room Air Height 5 ft Weight 129 lb 3.2 oz Telemetry Type Remote Telemetry Telemetry Monitoring Started Telemetry Heart Rate 89 EKG ME Interval 0.16 EKG QRS Interval 0.06 Telemetry Strip Reading NSR 08/19/23 16:00 08/19/23 16:51 08/19/23 17:44 Temperature Temperature Source Pulse Rate Respiratory Rate Blood Pressure Blood Pressure Mean Blood Pressure Right Arm Blood Pressure Location Blood Pressure Position O2 Sat by Pulse Oximetry Oxygen Delivery Method Room Air Room Air Room Air Height Weight Telemetry Type Telemetry Monitoring Telemetry Heart Rate EKG ME Interval EKG QRS Interval Telemetry Strip Reading 08/19/23 18:00 08/19/23 19:00 08/19/23 19:00 Temperature 98.0 F Temperature Source Temporal Artery Scan Pulse Rate 88 Respiratory Rate 18 Blood Pressure 98/69 Blood Pressure Mean 78 Blood Pressure Right Arm Blood Pressure Location Left Arm Blood Pressure Position Sitting O2 Sat by Pulse Oximetry 95 Oxygen Delivery Method Room Air Room Air Height Weight Telemetry Type Remote Telemetry Telemetry Monitoring Continues Telemetry Heart Rate 82 EKG ME Interval 0.18 EKG QRS Interval 0.04 L Telemetry Strip Reading sr 08/19/23 19:41 08/19/23 20:29 08/19/23 21:00 Temperature 97.3 F L Temperature Source Temporal Artery Scan Pulse Rate 77 Respiratory Rate 16 Blood Pressure 105/66 Blood Pressure Mean 79 Blood Pressure Right Arm Blood Pressure Location Left Arm Blood Pressure Position Supine O2 Sat by Pulse Oximetry 99 Oxygen Delivery Method Room Air Room Air Room Air Height Weight Telemetry Type Telemetry Monitoring Telemetry Heart Rate EKG ME Interval EKG QRS Interval Telemetry Strip Reading 08/19/23 22:00 08/19/23 23:00 08/20/23 00:00 Temperature Temperature Source Pulse Rate Respiratory Rate Blood Pressure Blood Pressure Mean Blood Pressure Right Arm Blood Pressure Location Blood Pressure Position O2 Sat by Pulse Oximetry Oxygen Delivery Method Room Air Room Air Room Air Height Weight Telemetry Type Telemetry Monitoring Telemetry Heart Rate EKG ME Interval EKG QRS Interval Telemetry Strip Reading 08/20/23 00:34 08/20/23 01:00 08/20/23 02:00 Temperature Temperature Source Pulse Rate Respiratory Rate Blood Pressure Blood Pressure Mean Blood Pressure Right Arm Blood Pressure Location Blood Pressure Position O2 Sat by Pulse Oximetry Oxygen Delivery Method Room Air Room Air Height Weight Telemetry Type Remote Telemetry Telemetry Monitoring Continues Telemetry Heart Rate 67 EKG ME Interval 0.15 EKG QRS Interval 0.08 Telemetry Strip Reading SINUS RHYTHM 08/20/23 03:00 08/20/23 03:51 08/20/23 05:00 Temperature Temperature Source Pulse Rate Respiratory Rate Blood Pressure Blood Pressure Mean Blood Pressure Right Arm Blood Pressure Location Blood Pressure Position O2 Sat by Pulse Oximetry Oxygen Delivery Method Room Air Room Air Room Air Height Weight Telemetry Type Telemetry Monitoring Telemetry Heart Rate EKG ME Interval EKG QRS Interval Telemetry Strip Reading 08/20/23 05:22 08/20/23 05:44 08/20/23 06:58 Temperature 98.4 F Temperature Source Temporal Artery Scan Pulse Rate 75 Respiratory Rate 20 Blood Pressure 111/81 Blood Pressure Mean 91 Blood Pressure Right Arm Blood Pressure Location Left Arm Blood Pressure Position O2 Sat by Pulse Oximetry 93 L Oxygen Delivery Method Room Air Room Air Room Air Height Weight Telemetry Type Telemetry Monitoring Telemetry Heart Rate EKG ME Interval EKG QRS Interval Telemetry Strip Reading 08/20/23 06:59 08/20/23 08:00 08/20/23 10:00 Temperature Temperature Source Pulse Rate Respiratory Rate Blood Pressure Blood Pressure Mean Blood Pressure Right Arm Blood Pressure Location Blood Pressure Position O2 Sat by Pulse Oximetry Oxygen Delivery Method Room Air Room Air Height Weight Telemetry Type Remote Telemetry Telemetry Monitoring Continues Telemetry Heart Rate 70 EKG ME Interval 0.15 EKG QRS Interval 0.08 Telemetry Strip Reading NSR 08/20/23 10:00 Temperature 97.9 F Temperature Source Temporal Artery Scan Pulse Rate 80 Respiratory Rate 18 Blood Pressure 100/71 Blood Pressure Mean 80 Blood Pressure Right Arm Blood Pressure Location Left Arm Blood Pressure Position O2 Sat by Pulse Oximetry 95 Oxygen Delivery Method Room Air Height Weight Telemetry Type Telemetry Monitoring Telemetry Heart Rate EKG ME Interval EKG QRS Interval Telemetry Strip Reading Lab Results Lab Results: Lab Results: Last 24 Hours 08/20/23 08/19/23 08/19/23 05:12 14:28 13:15 WBC 14.62 H RBC 4.18 L Hgb 12.0 Hct 37.8 D MCV 90.4 MCH 28.7 MCHC 31.7 L RDW Coeff of Xavier 14.1 Plt Count 145 Immature Gran % (Auto) 0.7 Neut % (Auto) 87.4 H Lymph % (Auto) 5.5 L [place] % (Auto) 3.3 Eos % (Auto) 3.0 Baso % (Auto) 0.1 Neut # (Auto) 12.8 H Lymph # (Auto) 0.8 [place] # (Auto) 0.5 Eos # (Auto) 0.4 Baso # (Auto) 0.0 Immature Gran # (Auto) 0.1 PT INR APTT Sodium 134.3 L Potassium 4.19 Chloride 110.1 H Carbon Dioxide 21.0 L Anion Gap 7.39 BUN 11.1 Creatinine 0.55 L Estimated GFR (MDRD) 112.00 BUN/Creatinine Ratio 20.18 Glucose 115.7 H Hemoglobin A1c 5.56 Lactic Acid Calcium 8.51 Total Bilirubin 1.01 AST 36.1 H ALT 30.4 Alkaline Phosphatase 63.0 Total Protein 5.93 L Albumin 3.38 L Globulin 2.55 Albumin/Globulin Ratio 1.32 Procalcitonin Urine Color Yellow Urine Clarity Clear Urine pH 5.0 Ur Specific [place] 1.010 Urine Protein Negative Urine Glucose (UA) Negative Urine Ketones 1+ H Urine Blood 2+ H Urine Nitrite Negative Urine Bilirubin Negative Urine Urobilinogen 0.2 Ur Leukocyte Esterase Negative Urine Microscopic RBC 5-10 Ur Squamous Epith Cells Not Reportable SARS CoV-2 RNA Rapid WARNER Negative 08/19/23 10:58 WBC 17.41 H RBC 5.23 Hgb 14.8 Hct 45.5 MCV 87.0 MCH 28.3 MCHC 32.5 RDW Coeff of Xavier 13.7 Plt Count 197 Immature Gran % (Auto) 0.5 Neut % (Auto) 89.6 H Lymph % (Auto) 4.7 L [place] % (Auto) 3.3 Eos % (Auto) 1.8 Baso % (Auto) 0.1 Neut # (Auto) 15.6 H Lymph # (Auto) 0.8 [place] # (Auto) 0.6 Eos # (Auto) 0.3 Baso # (Auto) 0.0 Immature Gran # (Auto) 0.1 PT 10.9 INR 1.05 APTT 27.5 Sodium 131.4 L Potassium 4.00 Chloride 102.7 Carbon Dioxide 23.4 Anion Gap 9.30 BUN 15.0 Creatinine 0.69 Estimated GFR (MDRD) 86.00 BUN/Creatinine Ratio 21.73 Glucose 117.8 H Hemoglobin A1c Lactic Acid 0.95 Calcium 9.18 Total Bilirubin 1.18 AST 21.7 ALT 17.9 Alkaline Phosphatase 80.9 Total Protein 7.22 Albumin 4.11 Globulin 3.11 Albumin/Globulin Ratio 1.32 Procalcitonin 0.41 H Urine Color Urine Clarity Urine pH Ur Specific [place] Urine Protein Urine Glucose (UA) Urine Ketones Urine Blood Urine Nitrite Urine Bilirubin Urine Urobilinogen Ur Leukocyte Esterase Urine Microscopic RBC Ur Squamous Epith Cells SARS CoV-2 RNA Rapid WARNER Additional Comments Additional Comments: I have independently reviewed and interpreted the labs/EKGs/imaging ordered during this hospital stay. I have reviewed outside records that are available in our EMR that pertain to medical stay including imaging/notes/labs from previous visits. Active Medications Active Medications: Medications Generic Name Dose Route Start Last Admin Trade Name Freq PRN Reason Stop Dose Admin Acetaminophen 650 mg 08/19/23 13:46 08/20/23 00:21 Acetaminophen 325 Mg Tablet PO 650 mg Q4H PRN Administration Mild Pain Enoxaparin Sodium 40 mg 08/20/23 09:00 08/20/23 08:07 Enoxaparin Sodium 40 Mg/0.4 Ml Syr SUBCUT 40 mg DAILY GRACIELA Administration Ampicillin Sodium/Sulbactam 100 mls @ 100 mls/hr 08/19/23 14:00 08/20/23 05:21 Sodium 3 gm/ Sodium Chloride IV 08/22/23 13:59 100 mls/hr Q6HR GRACIELA Administration VANCOMYCIN/WATER FOR INJ (PEG) 1 gm in 200 mls @ 200 mls/hr 08/19/23 21:00 08/20/23 09:00 Vancomycin 1 Gram/200 Ml Premix IV 08/22/23 20:59 200 mls/hr Q12HR GRACIELA Administration Morphine Sulfate 2 mg 08/19/23 13:46 08/19/23 19:27 Morphine Sulfate 2 Mg/Ml Syringe IVP 2 mg Q6H PRN Administration MODERATE PAIN Ondansetron HCl 4 mg 08/19/23 13:46 Ondansetron Hcl/Pf 4 Mg/2 Ml Sdv IVP Q6H PRN Hyperglycemia Plan Plan: 1. Acute cellulitis in setting of spider bite - WBC count improved. Suspect brown recluse. Meets sepsis criteria. Vanc and unasyn ordered. Blood cultures pending. Daily LDH ordered. Bili normal today. 2. Sepsis in setting of acute cellulitis - Plan as above. Blood cultures pendin g. Mrsa screen ordered. 3. Smoker - Pt declines nicotine patch. DVT Prophylaxis: Lovenox Review Statement Review Statement: I have personally discussed and reviewed the patient's visit/currently labs/imaging/decision making with Dr. Loredo, my supervising attending. Greater that 50 minutes spent with patient, 50% of the time spent with this patient was devoted to counseling and coordination of care.
[2023-08-21 05:24] VITALS: RESP 18
[2023-08-21 05:36] LABS: BASOPHILS % (AUTO) 0.1 % (0.0-3.0); EOSINOPHILS # (AUTO) 0.7 K/ul (0.0-0.7); EOSINOPHILS % (AUTO) 6.8 % (0.0-7.0); HEMATOCRIT 37.1 % (37.0-47.0); HEMOGLOBIN 11.9 g/dl (12.0-16.0); IMMATURE GRANULOCYTE % (AUTO) 0.3 % (0.0-5.0); LYMPHOCYTES % (AUTO) 21.1 (10.0-50.0); MEAN CORPUSCULAR HEMOGLOBIN 29.1 pg (27.0-31.0); MEAN CORPUSCULAR HGB CONC 32.1 (31.8-35.4); MEAN CORPUSCULAR VOLUME 90.7 fl (81.0-99.0); MONOCYTES # (AUTO) 0.6 K/uL (0.4-2.0); MONOCYTES % (AUTO) 6.5 (0-10); NEUTROPHILS # (AUTO) 6.2 K/ul (2.0-6.9); NEUTROPHILS % (AUTO) 65.2 % (42.2-75.2); RDW COEFFICIENT OF VARIATION 14.4 % (11.6-14.8); RED BLOOD COUNT 4.09 10^6/ul (4.20-5.40)
[2023-08-21 05:51] LABS: ALANINE AMINOTRANSFERASE 93.6 U/L (0-35); ALBUMIN 3.21 g/dL (3.5-5.0); ALKALINE PHOSPHATASE 77.6 U/L (53-141); ASPARTATE AMINO TRANSFERASE 85.5 U/L (14-36); BILIRUBIN,TOTAL 0.79 mg/dL (0.2-1.3); BLOOD UREA NITROGEN 9.5 mg/dL (7-17); CALCIUM 8.15 mg/dL (8.4-10.2); CARBON DIOXIDE 21.4 mmol/L (22-30.0); CHLORIDE 109.4 mmol/L (98-107); CREATININE 0.53 mg/dL (0.60-1.30); GLUCOSE 103.2 mg/dL (74-106); POTASSIUM 3.92 mmol/L (3.5-5.1); SODIUM 137.3 mmol/L (134.5-145); TOTAL PROTEIN 5.94 g/dL (6.3-8.2)
[2023-08-21 05:58] LABS: PLATELET COUNT 122 10^3/uL (140-440); WHITE BLOOD COUNT 9.56 K/ul (4.6-10.2)
--- NOTE | 2023-08-21 09:30 | DCSUM ---
Admission Date Admission Date: 08/19/23 Discharge Date Discharge Date: 08/21/23 Admission Diagnosis Admission Diagnosis: 1. Acute cellulitis in setting of spider bite 2. Sepsis in setting of acute cellulitis Discharge Diagnosis Discharge Diagnosis: 1. Acute cellulitis in setting of spider bite 2. Sepsis in setting of acute cellulitis, ruled out 3. Smoker 4. [facility] Provider Hospital Provider: PLACIDO CHILD PA-C, [facility] Summary of History and Physical Summary of History and Physical: Patient is a 63 year old female with history of tobacco use and limited access to health care who presents for spider bite of her right upper thigh occurring about 1100 on 08/18/23. Patient states she felt the bite right away and even was able to take a picture of the spider, which per ERP appears to be a brown recluse. Patient noted to be tachycardic. WBC count elevated. CT femur negative for acute findings. She was given 2L of fluid and IV pain medication. She received doxy and then vanc. She denies hx of diabetes. She is a daily smoker. Only complains of pain at this time. Admitted to med surg. Hospital Course Subjective: Patient was treated with unasyn and vanc. Her wbc count improved. Hgb dropped but felt to be dilutional as her bili and ldh have been normal. LDH is a send out however and makes trending it difficult. Patient's overall warmth and erythema of area has improved slightly, however the central discoloration continues to spread. Discussed in depth with patient potential complications including necrosis requiring debridement, hemolytic anemia, etc. She has been adamant since yesterday that she needs to leave today. She has many social factors contributing such as financials, pets at home, bills to pay, and a leaky faucet. We discussed the risks of leaving [facility] as I feel she would benefit from a longer hospital stay. These risks include loss of limb and even . She is alert, oriented, and has mental capacity to make decisions for herself. She still would like to leave [facility]. Will discharge on augmentin and doxy. Established her with a pcp and encouraged close follow up. She is aware she may return to the ER at any time. Appearance: Pleasant, No Apparent Distress and Alert HEENT: MMM CVS: No Murmur Abdomen: Soft, Non-Tender and No Distention Respiratory: No Accessory Muscle Use Extremities: No Edema Additional Findings: Right upper anterior/medial thigh : Overall erythema and warmth seems improved today. Black discoloration centrally has continued to spread. Flat, no induration, no drainage. A very small vesicle noted. Vital Signs: Most Recent Vital Signs Temperature 98.8 F 08/21/23 05:23 Temperature Source Temporal Artery Scan 08/21/23 05:23 Temperature Source Infrared 08/19/23 10:30 Pulse Rate 73 08/21/23 05:23 Respiratory Rate 18 08/21/23 05:23 Blood Pressure 138/77 08/21/23 05:23 Blood Pressure Mean 97 08/21/23 05:23 Blood Pressure Right Arm 106/56 08/19/23 14:15 Blood Pressure Location Left Arm 08/21/23 05:23 Blood Pressure Position Supine 08/21/23 01:42 O2 Sat by Pulse Oximetry 94 L 08/21/23 05:23 Oxygen Delivery Method Room Air 08/21/23 08:00 Height 5 ft 08/19/23 14:15 Weight 129 lb 3.2 oz 08/19/23 14:15 Telemetry Type Remote Telemetry 08/21/23 07:00 Telemetry Monitoring Continues 08/21/23 07:00 Irregular Telemetry Rate (Approximate) 50-60 BPM 08/21/23 07:00 Telemetry Heart Rate 64 08/21/23 01:00 Telemetry SPO2 94 09/24/22 01:00 EKG IN Interval 0.16 08/21/23 07:00 EKG QRS Interval 0.09 08/21/23 07:00 Telemetry Strip Reading Sinus Lupillo 08/21/23 07:00 Imaging: EXAM: CT RIGHT FEMUR WITH CONTRAST HISTORY: Spider bite, pain COMPARISON: None. FINDINGS: Axial CT images of the right femur with contrast and multiplanar reformatted images. No discrete fracture line. No dislocation. Degenerative changes to the hip and knee. Superficial soft tissue edema at the anterior and medial aspect of the right side. No drainable fluid collection. Prominent inguinal lymph nodes, possibly reactive. IMPRESSION: Findings suggesting cellulitis. No drainable fluid collection. Prominent right inguinal lymph nodes, possibly reactive. Additional findings as described. Lab Results Last 24 Hours: 08/21/23 08/21/23 08/20/23 08:26 05:21 05:12 WBC 9.56 D RBC 4.09 L Hgb 11.9 L Hct 37.1 MCV 90.7 MCH 29.1 MCHC 32.1 RDW Coeff of Xavier 14.4 Plt Count 122 L Immature Gran % (Auto) 0.3 Neut % (Auto) 65.2 Lymph % (Auto) 21.1 Wilcox % (Auto) 6.5 Eos % (Auto) 6.8 Baso % (Auto) 0.1 Neut # (Auto) 6.2 Lymph # (Auto) 2.0 Wilcox # (Auto) 0.6 Eos # (Auto) 0.7 Baso # (Auto) 0.0 Immature Gran # (Auto) 0.0 Sodium 137.3 Potassium 3.92 Chloride 109.4 H Carbon Dioxide 21.4 L Anion Gap 10.42 BUN 9.5 Creatinine 0.53 L Estimated GFR (MDRD) 117.00 BUN/Creatinine Ratio 17.92 Glucose 103.2 Calcium 8.15 L Total Bilirubin 0.79 AST 85.5 H D ALT 93.6 H D Alkaline Phosphatase 77.6 Lactate Dehydrogenase 82 L Total Protein 5.94 L Albumin 3.21 L Globulin 2.73 Albumin/Globulin Ratio 1.17 Vancomycin Trough 9.469 L Discharge Instructions Discharge Planning: Discharge Planning > [address] Dasia Loredo. Discharge Medications: Medications at Discharge (Home Meds & RX) Discharge Plan Discharge Discharge Orders: Discharge Patient (ONCE); Ordered 08/21/23 Ordered By: PLACIDO CHILD Activity Restrictions/Additional Instructions: DISCHARGE TO HOME DIET: NORMAL ACTIVITY: TOLERATED PLEASE RETURN TO ER WITH ANY WORSENING SYMPTOMS PLEASE FOLLOW UP WITH PRIMARY CARE PROVIDER, AN APPOINTMENT HAS BEEN MADE FOR YOU IT WAS RECOMMENDED THAT YOU REMAIN IN THE HOSPITAL, YOU MAY RETURN TO ER ANYTIME PHARMACY: [facility] YOU HAVE PRESCRIPTIONS FOR AUGMENTIN AND DOXYCYCLINE THAT WERE SENT TO YOUR PHARMACY. TAKE INSTRUCTED. DO NOT STOP TAKING UNLESS INSTRUCTED BY YOUR PROVIDER. IT MAY BE HELPFUL TO EAT YOGURT OR TAKE A PROBIOTIC WHILE YOU ARE TAKING ANTIBIOTICS. YOU RECEIVED TDAP VACCINE ON 08/19/2023 Instructions: Doxycycline (By mouth), Amoxicillin/Clavulanate Potassium (By mouth), Cellulitis (ED), Brown Recluse Spider Bite (IP), Cigarette Smoking and Your Health (GEN), Tdap and Td Vaccines for Adults (GEN) Patient Disposition: AMA Prescriptions: New doxycycline monohydrate 100 mg capsule 100 mg PO BID 7 Days Qty: 14 0RF amoxicillin-pot clavulanate 875-125 mg tablet 1 tab PO BID 7 Days Qty: 14 0RF Continued albuterol sulfate 90 mcg/actuation HFA aerosol inhaler 2 puff inhalation Q4-6H PRN (Reason: shortness of breath or wheezing) Qty: 8.5 0RF aspirin 81 mg capsule 81 mg PO DAILY No Action vitamin [id number] acid Did you review [place] DISPENSARY TECHNICIAN for ALL controlled substances?: Not Applicable Discussed opioids are addictive and Narcan is available by prescription or from pharmacy.: No Condition: Stable Referrals: JR ARREDONDO APRN [NURSE PRACTITIONER] - 08/24/23 8:15 am
[2023-08-21] MEDS: VANCOMYCIN 1.25 GM/250 ML BAG 1.25 GM/250 ML BAG IV SCH (09:44)
[2023-08-21 09:45] VITALS: BP 118/72; PULSE 84; TEMP 97.8
== END 2023-08-21 13:25 | disposition left against medical advice (07) ==
LOC: ED 10:27 → MEDSURG B 10:27
PROVIDERS: ADMIT Hospitalist; ATTEND Physician Assistant
DX: Z51.81 Encounter for therapeutic drug level monitoring; A41.9 Sepsis, unspecified organism; R00.0 Tachycardia, unspecified; Z23 Encounter for immunization; Z20.822 Contact with and (suspected) exposure to COVID-19; F17.210 Nicotine dependence, cigarettes, uncomplicated; L03.115 Cellulitis of right lower limb; T63.331A Toxic effect of venom of brown recluse spider, accidental (unintentional), initial encounter; Z79.899 Other long term (current) drug therapy